=== PATIENT | female | born 1955 | race Caucasian/White ===

== ENCOUNTER 2018-06-05 09:46 | Inpatient (IN) ==
[2018-06-05] MEDS ORDERED: Labetalol HCl Inj 100 MG/20 ML Vial IV.PUSH ONE (10:58)
--- NOTE | 2018-06-05 11:00 | ED ---
HPI General Chief complaint: Nausea/Vomiting/Diarrhea Stated complaint: flu like symptoms Time Seen by Provider: 06/05/18 10:41 Source: patient Mode of arrival: EMS Limitations: no limitations History of Present Illness HPI narrative: This 62-year-old female says she went to work morning. When she was at work she started feeling badly. She started sweating and then she had vomiting. He did not have a headache. She says that her right hand and her right foot had pins and needles. She did not have any weakness. She is started vomiting and had dry heaves. She called an ambulance and was given Zofran and says she is feeling a bit better now. Her nausea and vomiting have improved and her sweating has resolved. Tingling now. She is not on any medications she is on no [id number] counter medication she does smoke cigarettes and she drinks alcohol daily. She has had elevated pressure readings in the past but does not see any physician on a regular basis Related Data Home Medications Medication Instructions Recorded Confirmed No Known Home Medications 06/05/18 06/05/18 Allergies Allergy/AdvReac Type Severity Reaction Status Date / Time morphine Allergy Unknown unknown Verified 06/05/18 09:55 Review of Systems ROS: all other systems reviewed are negative Gastrointestinal Reports nausea and Reports vomiting PMFSH Medical History Medical History HTN (hypertension) (Acute) Surgical History Surgical History History of appendectomy (Acute) History of tubal ligation (Acute) Social History Social History Substance History: No History of Abuse Smoking Status: Current every day smoker Tobacco Type: Cigarettes How Often Do You Have a Drink Containing Alcohol: 4 or more times a week Immunization History Tetanus Immunization: >5 Years Exam Narrative Exam Narrative: GENERAL: Well-developed female. Blood pressure is initially 260 /210 SKIN: Focused skin assessment warm/dry. HEAD: Atraumatic. Normocephalic. EYES: Pupils equal and round. No scleral icterus. No injection or drainage. ENT: No nasal bleeding or discharge. Mucous membranes pink and moist. NECK: Trachea midline. No JVD. CARDIOVASCULAR: Regular rate and rhythm. No murmur appreciated. RESPIRATORY: No accessory muscle use. Clear to auscultation. Breath sounds equal bilaterally. GASTROINTESTINAL: Abdomen soft, non-tender, nondistended. Hepatic and splenic margins not palpable. MUSCULOSKELETAL: No obvious deformities. No clubbing. No cyanosis. No edema. NEUROLOGICAL: Awake and alert. No obvious cranial nerve deficits. Motor grossly within normal limits. Normal speech. PSYCHIATRIC: Appropriate mood and affect; insight and judgment normal.. Course Initial Documented Vital Signs Temperature 97.5 F L 06/05/18 09:50 Pulse Rate 74 06/05/18 09:50 Respiratory Rate 16 06/05/18 09:50 Blood Pressure 256/109 H 06/05/18 09:50 Pulse Oximetry 94 L 06/05/18 09:50 Last Documented Vital Signs Temperature 97.5 F L 06/05/18 09:50 Pulse Rate 74 06/05/18 09:50 Respiratory Rate 16 06/05/18 10:55 Blood Pressure 245/105 H 06/05/18 10:55 Pulse Oximetry 96 06/05/18 10:55 Medical Decision Making MDM Narrative Medical decision making narrative: CT scan of the brain shows hemorrhage in the left brainstem which measures 17 x 10 mm. Patient has been started on Cardene for blood pressure control Medical Screen Exam Complete: Yes Emergency Medical Condition: Yes Lab Data Result diagrams: 06/05/18 11:00 06/05/18 11:00 Lab Results 06/05/18 06/05/18 06/05/18 Range/Units 11:00 11:00 11:00 CBC w Diff Slide review pending WBC 10.3 (4.0-11.0) th/mm3 RBC 4.95 (4.00-5.30) mil/mm3 Hgb 16.5 H (11.6-15.3) gm/dL Hct 45.5 (35.0-46.0) % MCV 92.1 (80.0-100.0) fL MCH 33.3 (27.0-34.0) pg MCHC 36.1 H (32.0-36.0) % RDW 14.7 (11.6-17.2) % Plt Count 314 (150-450) th/mm3 MPV 7.8 (7.0-11.0) fL Neut % (Auto) 76.7 H (16.0-70.0) % Lymph % (Auto) 10.3 (9.0-44.0) % [place] % (Auto) 8.2 H (0.0-8.0) % Eos % (Auto) 0.6 (0.0-4.0) % Baso % (Auto) 4.2 H (0.0-2.0) % Neut # (Auto) 7.9 H (1.8-7.7) th/mm3 Lymph # (Auto) 1.1 (1.0-4.8) th/mm3 [place] # (Auto) 0.8 (0.0-0.9) th/mm3 Eos # (Auto) 0.1 (0.0-0.4) th/mm3 Baso # (Auto) 0.4 H (0.0-0.2) th/mm3 Differential Comment . PT 10.7 (9.8-11.6) sec INR 1.1 Ratio APTT 22.6 L (24.3-30.1) sec Sodium 140 (136-145) meq/L Potassium 3.3 L (3.5-5.1) meq/L Chloride 104 (98-107) meq/L Carbon Dioxide 23.9 (21.0-32.0) meq/L Anion Gap 12 (5-15) meq/L BUN 9 (7-18) mg/dL Creatinine 0.78 (0.50-1.00) mg/dL Estimated GFR 74 L (>89) mL/min POC Glucose (68-110) mg/dl Random Glucose 103 (74-106) mg/dL Calcium 8.5 (8.5-10.1) mg/dL Total Bilirubin 1.0 (0.2-1.0) mg/dL AST 22 (15-37) U/L ALT 17 (10-53) U/L Alkaline Phosphatase 65 (45-117) U/L Troponin I Less than 0.02 L (0.02-0.05) ng/mL Total Protein 8.0 (6.4-8.2) g/dL Albumin 4.2 (3.4-5.0) g/dL 06/05/18 Range/Units 11:08 CBC w Diff WBC (4.0-11.0) th/mm3 RBC (4.00-5.30) mil/mm3 Hgb (11.6-15.3) gm/dL Hct (35.0-46.0) % MCV (80.0-100.0) fL MCH (27.0-34.0) pg MCHC (32.0-36.0) % RDW (11.6-17.2) % Plt Count (150-450) th/mm3 MPV (7.0-11.0) fL Neut % (Auto) (16.0-70.0) % Lymph % (Auto) (9.0-44.0) % [place] % (Auto) (0.0-8.0) % Eos % (Auto) (0.0-4.0) % Baso % (Auto) (0.0-2.0) % Neut # (Auto) (1.8-7.7) th/mm3 Lymph # (Auto) (1.0-4.8) th/mm3 [place] # (Auto) (0.0-0.9) th/mm3 Eos # (Auto) (0.0-0.4) th/mm3 Baso # (Auto) (0.0-0.2) th/mm3 Differential Comment PT (9.8-11.6) sec INR Ratio APTT (24.3-30.1) sec Sodium (136-145) meq/L Potassium (3.5-5.1) meq/L Chloride (98-107) meq/L Carbon Dioxide (21.0-32.0) meq/L Anion Gap (5-15) meq/L BUN (7-18) mg/dL Creatinine (0.50-1.00) mg/dL Estimated GFR (>89) mL/min POC Glucose 118 H (68-110) mg/dl Random Glucose (74-106) mg/dL Calcium (8.5-10.1) mg/dL Total Bilirubin (0.2-1.0) mg/dL AST (15-37) U/L ALT (10-53) U/L Alkaline Phosphatase (45-117) U/L Troponin I (0.02-0.05) ng/mL Total Protein (6.4-8.2) g/dL Albumin (3.4-5.0) g/dL Imaging Data Radiologist's impression: Chest X-Ray 06/05/18 10:48 CONCLUSION: Mild cardiomegaly. Head CT 06/05/18 10:51 CONCLUSION: 1. Hemorrhage in the left brainstem. No significant mass effect or midline shift. Fourth ventricle remains patent. 2. Nonspecific white matter changes. . Discharge Plan Discharge Disposition Patient Disposition: Transfer To [facility] Discharge Condition Condition: Critical Discharge Details Diagnosis: Hypertensive emergency Physicians Team ED Provider: Rony Stevenson Primary Care Provider: Primary Care Lidia Rose Rxs /Orders / Referrals /Forms Prescriptions: No Action No Known Home Medications RF: 0 Discharge Interventions Interventions: Vital Signs Last Done: 06/05/18 10:55 Status ED Status: With Doctor
[2018-06-05 11:22] LABS: Baso # (Auto) 0.4 th/mm3 (0.0-0.2); Baso % (Auto) 4.2 % (0.0-2.0); Eos # (Auto) 0.1 th/mm3 (0.0-0.4); Eos % (Auto) 0.6 % (0.0-4.0); Hematocrit 45.5 % (35.0-46.0); Hemoglobin 16.5 gm/dL (11.6-15.3); Lymph # (Auto) 1.1 th/mm3 (1.0-4.8); Lymph % (Auto) 10.3 % (9.0-44.0); Mean Corpuscular Hemoglobin 33.3 pg (27.0-34.0); Mean Corpuscular Volume 92.1 fL (80.0-100.0); Mean Platelet Volume 7.8 fL (7.0-11.0); Mono # (Auto) 0.8 th/mm3 (0.0-0.9); Mono % (Auto) 8.2 % (0.0-8.0); Neut # (Auto) 7.9 th/mm3 (1.8-7.7); Neut % (Auto) 76.7 % (16.0-70.0); Platelet Count 314 th/mm3 (150-450); Red Blood Count 4.95 mil/mm3 (4.00-5.30); Red Cell Distribution Width 14.7 % (11.6-17.2); White Blood Count 10.3 th/mm3 (4.0-11.0)
--- NOTE | 2018-06-05 11:25 | XR ---
EXAM DATE: 06/05/2018 10:48 AM EDT AGE/SEX: 62 years / Female INDICATIONS: High blood pressure with vomiting CLINICAL DATA: This is the patient's initial encounter. Patient reports that signs and symptoms have been present for 1 day and indicates a pain score of 4/10. MEDICAL/SURGICAL HISTORY: . Pancreatitis. Gastroesophageal reflux disease. Hypertension. . A ppendectomy. Tubal ligation. COMPARISON: [facility], CHEST PA & LAT, 06/25/2012. . FINDINGS: A single AP view of the chest demonstrates the lungs to be symmetrically aerated without evidence of mass, infiltrate or effusion. Heart mildly enlarged. The cardiomediastinal contours are unremarkable. Osseous structures are intact. CONCLUSION: Mild cardiomegaly. Electronically signed by: Qamar Cope MD 06/05/2018 11:23 AM EDT
[2018-06-05 11:32] LABS: Chloride 104 meq/L (98-107); Potassium 3.3 meq/L (3.5-5.1); Sodium 140 meq/L (136-145)
[2018-06-05 11:38] LABS: Albumin 4.2 g/dL (3.4-5.0); Anion Gap 12 meq/L (5-15); Blood Urea Nitrogen 9 mg/dL (7-18); Calcium 8.5 mg/dL (8.5-10.1); Carbon Dioxide 23.9 meq/L (21.0-32.0); Glucose,Random 103 mg/dL (74-106)
[2018-06-05 11:41] LABS: Alanine Aminotransferase 17 U/L (10-53); Aspartate Aminotransferase 22 U/L (15-37); Glomerular Filtration Rate 74 mL/min (>89)
[2018-06-05 11:44] LABS: Alkaline Phosphatase 65 U/L (45-117)
[2018-06-05 11:54] LABS: Activated Partial Thrombo Time 22.6 sec (24.3-30.1); INR 1.1 Ratio; Prothrombin Time 10.7 sec (9.8-11.6)
--- NOTE | 2018-06-05 12:00 | CT ---
EXAM DATE: 06/05/2018 11:07 AM EDT AGE/SEX: 62 years / Female INDICATIONS: Nausea and tingling in right upper and lower extremity. CLINICAL DATA: This is the patient's initial encounter. Patient reports that signs and symptoms have been present for 1 day and indicates a pain score of 0/10. MEDICAL/SURGICAL HISTORY: Hypertension. Appendectomy. Tubal ligation. RADIATION DOSE: 51.68 CTDI (mGy) COMPARISON: No prior exams available for comparison. TECHNIQUE: CT of the head without contrast. Using automated exposure control and adjustment of the mA and/or kV according to patient size, radiation dose was kept as low as reasonably achievable to ob tain optimal diagnostic quality images. DICOM format image data is available electronically for revi ew and comparison. FINDINGS: Cerebrum: The ventricles are normal for age. Scattered areas of low attenuation throughout the white matter. No evidence of midline shift, mass lesion, hemorrhage or acute infarction. No extraaxial fl uid collections are seen. Posterior Fossa: The cerebellum is intact. Hemorrhage in the left brainstem measures 17 x 10 mm. No significant mass effect. The 4th ventricle is midline. The cerebellopontine angle is unremarkable. Extracranial: The visualized portion of the orbits is intact. Skull: The calvaria is intact. No evidence of skull fracture. CONCLUSION: 1. Hemorrhage in the left brainstem. No significant mass effect or midline shift. Fourth ventricle r emains patent. 2. Nonspecific white matter changes. . Electronically signed by: Qamar Cope MD 06/05/2018 11:58 AM EDT
[2018-06-05 12:02] LABS: Mean Corpuscular HGB Conc 36.1 % (32.0-36.0)
[2018-06-05] MEDS ORDERED: Potassium Chlor 10 mEq Premix 10 MEQ/100 ML PIGGYBACK IV.SIG ONE (12:20)
[2018-06-05] MEDS: niCARdipine Inj 25 MG in Sodium Chlor 0.9% Inj 240 ML IV.CONT PRN ×4 (12:51→23:53)
[2018-06-05] MEDS ORDERED: Sodium Phosphate Inj 30 MMOL in Sodium Chlor 0.9% Inj 250 ML IV.SIG PRN (12:56)
[2018-06-05] MEDS ORDERED: Magnesium Sulfate Inj 2 GM in Sodium Chlor 0.9% Inj 96 ML IV.SIG PRN (12:56)
[2018-06-05] MEDS ORDERED: Magnesium Oxide 400 MG Tablet PO PRN (12:56)
[2018-06-05] MEDS ORDERED: Potassium Chloride 25 MEQ Effervescent Tablet PO PRN (12:56)
[2018-06-05] MEDS ORDERED: Potassium Phosphate 500 MG Soluble Tablet PO PRN ×2 (12:56)
[2018-06-05] MEDS ORDERED: Potassium Chlor 40 mEq Premix 40 MEQ/100 ML PIGGYBACK IV.SIG PRN ×2 (12:56)
[2018-06-05] MEDS ORDERED: Magnesium Sulfate Inj 4 GM in Sodium Chlor 0.9% Inj 92 ML IV.SIG PRN (12:56)
[2018-06-05] MEDS ORDERED: Bisacodyl 10 MG Supp RECTAL PRN (12:56)
[2018-06-05] MEDS ORDERED: Potassium Phosphate Inj 30 MMOL in Sodium Chlor 0.9% Inj 250 ML IV.SIG PRN (12:56)
[2018-06-05 13:15] LABS: Bilirubin,Urine Negative (Negative); Clarity,Urine Clear (Clear); Color,Urine Yellow (Yellw/Straw); Glucose,Urine (UA) Negative (Negative); Leukocyte Esterase,Urine Trace (Negative); Nitrite,Urine Negative (Negative); PH,Urine 7.5 (5.0-8.5); Urobilinogen,Urine 0.2 mg/dL (Less than 2)
[2018-06-05 13:21] LABS: Bacteria,Urine Rare /hpf; Squamous Epithelial Cell,Urine 0-5 /hpf (0-5); WBC,Urine 0-5 /hpf (0-5)
[2018-06-05] MEDS: Sod Chloride 0.9% Inj 1,000 ML IV.CONT SCH (14:00)
--- NOTE | 2018-06-05 14:47 | P.HPCC ---
History of Present Illness Service: [facility] Primary Care Physician: No Primary Care Physician History of Present Illness: 62yF who presented to [facility] for sweating, "dry heaving", and "not feeling well". She reported "pins and needles" sensation to her right hand and foot, onset approximately 8:45 AM (30-45 mins prior to arrival to ED). Denies aphasia, slurred speech, drooling or sensation of facial droop, extremity weakness, difficulty ambulating, headache, or confusion. She was found to be profoundly hypertensive (SBP 260s) with hypertensive brainstem hemorrhage, was started on a nicardipine drip, and was subsequently transferred to the [facility] for neurocritical care and neurosurgery evaluation. She denies use of anticoagulants or antiplatelets, denies recent trauma, has a history of elevated BP previously but is not on any antihypertensives currently due to insurance issues; she does not remember which medication(s) she took in the past. She currently complains of nausea. Family history significant for multiple family members with HTN, father with nephrectomy (unclear etiology), and "tumor on his bowel". No known family history of CVA. - Diagnosis (1) Brainstem hemorrhage (2) Hypertensive emergency Inpatient Certification: I certify that the inpatient services were ordered in accordance with Medicare regulations governing the order. This includes certification that hospital inpatient services are reasonable and necessary and in the case of services not specified as inpatient-only under 42 CFR 419.22(n), that they are appropriately provided as inpatient services in accordance to with the 2-midnight benchmark under 43 CFR 412.3(e) Estimated Total Length of Stay (Days): 7 Plans for Post Hospital Care: Not yet determined Review of Systems All other systems reviewed negative except as stated in HPI Constitutional: Reports excessive sweating, Denies headache(s) Eyes: Denies blurry vision Cardiovascular: Denies chest pain Respiratory: Denies shortness of breath Gastrointestinal: Reports nausea, Reports vomiting Musculoskeletal: Denies abnormal walking Neurologic: Reports tingling, Denies abnormal speech, Denies headache(s), Denies unsteadiness, Denies weakness PMFSH - History History Provided By: Patient - Medical History Medical History: Medical History (Last Reviewed 06/05/18 @ 14:43 by Allie Albright DO) HTN (hypertension) - Surgical History Surgical History: Surgical History (Last Reviewed 06/05/18 @ 14:43 by Allie Albright DO) History of appendectomy History of tubal ligation - Social History I have reviewed the patient's Social History: Yes - Tobacco History Tobacco Use In Past 30 Days: Yes Smoking Status: Current every day smoker Tobacco Type: Cigarettes - Alcohol History How Often Do You Have a Drink Containing Alcohol: 4 or more times a week - Substance Use History Substance History: No History of Abuse - Immunization History Tetanus Immunization: >5 Years Medications and Allergies Active Medications: Active Medications Al Hydroxide/Mg Hydroxide (Milk Of Magnesia Liq) 30 ml PO Q12H PRN PRN Reason: Mild Constipation Bisacodyl (Dulcolax Supp) 10 mg RECTAL DAILY PRN PRN Reason: SEVERE CONSITIPATION Chlorhexidine Gluconate (Chlorhexidine 2% Cloth) 3 pack TOPICAL DAILY@0400 MAGDIEL Stop: 06/11/18 03:59 Chlorhexidine Gluconate (Chlorhexidine 2% Cloth) 3 pack TOPICAL DAILY@0400 PRN PRN Reason: Extra cloth needed Stop: 06/11/18 03:59 Famotidine (Pepcid) 20 mg PO BID [facility] Famotidine (Pepcid Pf Inj) 20 mg IV.PUSH Q12HR [facility] Nicardipine HCl 25 mg/ Sodium (Chloride) 250 mls @ 50 mls/hr IV.CONT TITRATE PRN; Protocol PRN Reason: Per Protocol Last Admin: 06/05/18 12:51 Dose: 5 mg/hr, 50 mls/hr Magnesium Sulfate 4 gm/ Sodium (Chloride) 100 mls @ 50 mls/hr IV.SIG UNSCH PRN PRN Reason: For Magnesium 0.9 - 1.1 mg/dL Magnesium Sulfate 2 gm/ Sodium (Chloride) 100 mls @ 50 mls/hr IV.SIG UNSCH PRN PRN Reason: For Magnesium 1.2 - 1.6 mg/dL Sodium Chloride (Ns Inj) 1,000 mls @ 84 mls/hr IV.CONT .[id number] [facility] Last Admin: 06/05/18 14:00 Dose: 84 mls/hr Potassium Chloride (Kcl 40 Meq Premix Inj) 40 meq in 100 mls @ 25 mls/hr IV.SIG Q2H PRN PRN Reason: For Potassium 2.8 - 3.2 mEq/L Potassium Chloride (Kcl 20 Meq Premix Inj) 20 meq in 100 mls @ 50 mls/hr IV.SIG Q2H PRN PRN Reason: For Potassium 3.3 - 3.5 mEq/L Potassium Chloride (Kcl 40 Meq Premix Inj) 40 meq in 100 mls @ 25 mls/hr IV.SIG UNSCH PRN PRN Reason: For Potassium 3.3 - 3.5 mEq/L Potassium Chloride (Kcl 20 Meq Premix Inj) 20 meq in 100 mls @ 50 mls/hr IV.SIG Q2H PRN PRN Reason: For Potassium 2.8 - 3.2 mEq/L Potassium Phosphate 30 mmol/ (Sodium Chloride) 260 mls @ 42 mls/hr IV.SIG UNSCH PRN PRN Reason: SEE LABEL COMMENTS Sodium Phosphate 30 mmol/ (Sodium Chloride) 260 mls @ 42 mls/hr IV.SIG UNSCH PRN PRN Reason: For Phosphorus < 2.5 mg/dL Lactulose (Lactulose Liq) 30 ml PO DAILY PRN PRN Reason: SEVERE CONSITIPATION Magnesium Oxide (Mag-Ox) 800 mg PO UNSCH PRN PRN Reason: For Magnesium 1.2 - 1.6 mg/dL Potassium Bicarb/Potassium Chloride (K-Lyte Cl Eff) 50 meq PO UNSCH PRN PRN Reason: For Potassium 3.3 - 3.5 mEq/L Potassium Phosphate (K-Phos Original) 2,000 mg PO Q4H PRN PRN Reason: Phosphorus Less Than 2.5 mg/dL Potassium Phosphate (K-Phos Original) 2,000 mg PO UNSCH PRN PRN Reason: SEE LABEL COMMENTS Senna/Docusate Sodium (Priscilla-Colace) 1 tab PO BID MAGDIEL Sennosides (Senokot) 17.2 mg PO Q12H PRN PRN Reason: Moderate Constipation Sodium Chloride (Ns Flush) 2 ml IV.FLUSH PRN PRN PRN Reason: FLUSH AFTER USING IV ACCESS Sodium Chloride (Ns Flush) 2 ml IV.FLUSH BID MAGDIEL Sodium Chloride (Ns Flush) 2 ml IV.FLUSH PRN PRN PRN Reason: FLUSH AFTER USING IV ACCESS Allergies Allergy/AdvReac Type Severity Reaction Status Date / Time morphine Allergy Unknown unknown Verified 06/05/18 09:55 Home Medications Medication Instructions Recorded Confirmed Type No Known Home Medications 06/05/18 06/05/18 History Results - Labs CBC & Chem 7: 06/05/18 11:00 06/05/18 11:00 Labs: Short CBC 06/05/18 Range/Units 11:00 WBC 10.3 (4.0-11.0) th/mm3 Hgb 16.5 H (11.6-15.3) gm/dL Hct 45.5 (35.0-46.0) % Plt Count 314 (150-450) th/mm3 BMP 06/05/18 11:00 Sodium 140 Potassium 3.3 L Chloride 104 Carbon Dioxide 23.9 BUN 9 Creatinine 0.78 Calcium 8.5 Cardiac Enzymes 06/05/18 Range/Units 11:00 Troponin I Less than 0.02 L (0.02-0.05) ng/mL Liver Function 06/05/18 Range/Units 11:00 Total Bilirubin 1.0 (0.2-1.0) mg/dL AST 22 (15-37) U/L ALT 17 (10-53) U/L Alkaline Phosphatase 65 (45-117) U/L Albumin 4.2 (3.4-5.0) g/dL Urine 06/05/18 Range/Units 12:55 Urine Color Yellow (Yellw/Straw) Urine Clarity Clear (Clear) Urine pH 7.5 (5.0-8.5) Ur Specific [place] 1.010 (1.002-1.035) Urine Protein Negative (Neg-Trace) mg/dL Urine Glucose (UA) Negative (Negative) mg/dL - Imaging Impressions Chest X-Ray 06/05/18 10:48 CONCLUSION: Mild cardiomegaly. Head CT 06/05/18 10:51 CONCLUSION: 1. Hemorrhage in the left brainstem. No significant mass effect or midline shift. Fourth ventricle remains patent. 2. Nonspecific white matter changes. . Exam Vital signs: Vital Signs 06/05/18 09:50 06/05/18 10:55 06/05/18 11:55 Temperature 97.5 F L Pulse Rate 74 74 Respiratory Rate 16 16 16 Blood Pressure 256/109 H 245/105 H 215/102 H Pulse Oximetry 94 L 96 98 06/05/18 12:55 06/05/18 12:56 06/05/18 13:10 Temperature Pulse Rate 83 80 Respiratory Rate 16 16 Blood Pressure 232/107 H 192/86 H Pulse Oximetry 98 98 97 06/05/18 13:25 06/05/18 13:50 06/05/18 14:10 Temperature Pulse Rate 83 84 89 Respiratory Rate 16 16 16 Blood Pressure 178/84 H 175/85 H 170/76 H Pulse Oximetry 98 97 97 06/05/18 14:25 Temperature Pulse Rate 86 Respiratory Rate 16 Blood Pressure 170/75 H Pulse Oximetry 96 Intake & Output 06/04/18 06/05/18 06/05/18 18:59 06:59 18:59 Intake Total 100 / 100 Balance 100 / 100 Weight 58.967 kg Intake: IV 100 / 100 KCl 10 mEq Premix Inj 10 meq In 100 / 100 100 ml @ 100 mls/hr IV.SIG ONCE ONE Rx#:[id number] Narrative: GEN: Well-appearing, sitting up in bed in no acute distress HEENT: NCAT, pupils 3 mm and reactive bilaterally, no facial droop NECK: Trachea midline CARDIO: Regular rate and rhythm PULM: Clear to auscultation bilaterally ABD/GI: Soft and non-tender in all quadrants EXT/MSK: No lower extremity edema, warm and well-perfused SKIN: No rashes or lesions NEURO: GCS 15, A&Ox3, NIHSS 0 * Motor strength 5/5 and sensation intact to all extremities, no pronator drift * scarifier operator II-XII intact, speech clear and fluent, no slurred speech or aphasia, no facial droop * Answers all questions appropriately and follows all commands * No focal neuro deficits PSYCH: Appropriate affect Caprini VTE Risk Assessment Caprini VTE Risk Assessment: Moderate/High Risk (score >= 2) VTE Pharmacological Exception Reason: Hemorrhage Caprini Risk Assessment Model: Point Value = 1 Point Value = 2 Point Value = 3 Point Value = 5 Age 41-60 Minor surgery BMI > 25 kg/m2 Swollen legs Varicose veins or History of unexplained or recurrent spontaneous Oral contraceptives or hormone replacement Sepsis (< 1 month) Serious lung disease, including pneumonia (< 1 month) Abnormal pulmonary function Acute myocardial infarction Congestive heart failure (< 1 month) History of inflammatory bowel disease Medical patient at bed rest Age 61-74 Arthroscopic surgery Major open surgery (> 45 min) Laparoscopic surgery (> 45 min) Malignancy Confined to bed (> 72 hours) Immobilizing plaster cast Central venous access Age >= 75 History of VTE Family history of VTE Factor V Leiden Prothrombin [id number] Lupus anticoagulant Anticardiolipin antibodies Elevated serum homocysteine Heparin-induced thrombocytopenia Other congenital or acquired thrombophilia Stroke (< 1 month) Elective arthroplasty Hip, pelvis, or leg fracture Acute spinal cord injury (< 1 month) Prophylaxis Regimen: Total Risk Factor Score Risk Level Prophylaxis Regimen 0-1 Low Early ambulation 2 Moderate Order ONE of the following: *Sequential Compression Device (SCD) *Heparin 5000 units SQ BID 3-4 Higher Order ONE of the following medications: *Heparin 5000 units SQ TID *Enoxaparin/Lovenox 40 mg SQ daily (WT < 150 kg, CrCl > 30 mL/min) *Enoxaparin/Lovenox 30 mg SQ daily (WT < 150 kg, CrCl > 10-29 mL/min) *Enoxaparin/Lovenox 30 mg SQ BID (WT < 150 kg, CrCl > 30 mL/min) AND/OR *Sequential Compression Device (SCD) 5 or more Highest Order ONE of the following medications: *Heparin 5000 units SQ TID (Preferred with Epidurals) *Enoxaparin/Lovenox 40 mg SQ daily (WT < 150 kg, CrCl > 30 mL/min) *Enoxaparin/Lovenox 30 mg SQ daily (WT < 150 kg, CrCl > 10-29 mL/min) *Enoxaparin/Lovenox 30 mg SQ BID (WT < 150 kg, CrCl > 30 mL/min) AND *Sequential Compression Device (SCD) Assessment and Plan - Problem List (1) Brainstem hemorrhage Code(s): I61.3 - Nontraumatic intracerebral hemorrhage in brain stem Status: Acute (2) Hypertensive emergency Code(s): I16.1 - Hypertensive emergency Status: Acute - Assessment and Plan Plan: Assessment: 62yF presenting with hypertensive emergency and hypertensive brainstem hemorrhage on the left NEURO: * Neurosurg consult * Cardene gtt to keep SBP < 160 mmHg * Repeat CTH in AM * Avoid all anticoagulants/ antiplatelets * q1h neuro checks * Monitor for signs of EtOH withdrawal; would like to avoid benzos in the acute setting unless absolutely necessary CARDIO: * BP control as noted above RESP: * Counseled patient on importance of smoking cessation * Nicotine patch * Incentive spirometer F/E/N: * Stress ulcer prophylaxis * NPO, maintenance IVF * Dysphagia screening * Serum sodium 140, no indication for hyperosmolar therapy * ICU lyte repletion protocol HEME: * SCDs only ID: * No active issues ENDO: * q6h FSBG, sliding scale if needed (no previous history of DM) * Check A1c PROPHY: * Stress ulcer prophylaxis * Bowel regimen * SCDs only OVERALL: This patient is critically ill and requires ICU level of care for hypertensive emergency and hypertensive brain stem hemorrhage. Counseling/ Coordination of Care: Total critical care time spent is 44 minutes. This includes examining the patient, gathering history from someone other than the patient (i.e. chart review), discussing the patient's care with other providers, managing the patient's blood pressure, ordering and interpreting radiologic studies, ordering and interpreting laboratory values, re-evaluation at frequent intervals , and documentation. Amount of time is separate from teaching, counseling the patient and/or family, and exclusive of procedures. Code Status: Full H&P: Quality - Stroke Contraindication Not Initiating IV-Tpa: Contraindicated Onset of Symptoms Date: 06/05/18 Onset of Symptoms Time: 08:45 (Approximate as per patient) Symptom Onset Unknown: Yes Contraindication Antithromb by Day Two: Contraindicated Rehab Services Assessed: Physical medicine initial examination and planning for rehabilitation - VTE Contraindication No VTE Prophylaxis: Contraindicated (intracranial hemorrhage) Documentation of Mechanical Device: Intermittent pneumatic compression stockings Deep Vein Thrombosis/Pulmonary Embolism Present on Admission: No (1) Brainstem hemorrhage Qualifiers: Intracerebral hemorrhage etiology: nontraumatic
--- NOTE | 2018-06-05 16:51 | ECG ---
Date Performed: 06/05/2018 Time Performed: 11:21:12 PTAGE: 62 years EKG: Sinus rhythm WITH OCCASIONAL SUPRAVENTRICULAR PREMATURE COMPLEXES NONSPECIFIC T-WAVE ABNORMALITY PROLONGED QT INT ERVAL ABNORMAL ECG Since PREVIOUS TRACING , no significant change noted PREVIOUS TRACIN07/09/2014 02.16 DOCTOR: Aimee Gomez Interpretating Date/Time 06/05/2018 16:49:35
--- NOTE | 2018-06-05 18:02 | P.CONNS ---
History of Present Illness Service: Neurosurgery Consult date: 06/05/18 Requesting Physician: Allie Albright (Route Service Representative) Reason for Consult: Brainstem hemorrhage Primary Care Provider: No Primary Care Physician Family Provider: No Primary Care Physician History of Present Illness: 62-year-old right-handed female presented emergency room with complaints of acute onset of nausea along with numbness in the right arm and leg and diaphoresis. She was very hypertensive on presentation with systolic blood pressure in the 240s range. CT scan of the head obtained reveals a left midbrain/pontine brainstem hemorrhage measuring 17 mm x 9 mm without any associated hydrocephalus. She was started on Cardene drip to regulate her intractable hypertension and transferred to [facility] main business systems analyst for further management. She relates that her symptoms have improved since this morning. She has a history of hypertension but due to lack of medical insurance is not been compliant with the any medical follow-up or medications. 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 Review of Systems Constitutional: Reports excessive sweating, Denies anorexia, Denies body ache(s) , Denies chills, Denies daytime sleepiness, Denies fatigue, Denies fever(s), Denies headache(s), Denies increased appetite, Denies lack of energy, Denies malaise, Denies night sweats, Denies weakness, Denies weight gain, Denies weight loss, Denies other Eyes: Denies blind spots, Denies blurry vision, Denies bulging eyes, Denies change in vision, Denies double vision, Denies discharge, Denies dry eyes, Denies floaters, Denies irritation, Denies itchy eyes, Denies loss of vision, Denies pain, Denies requires corrective lenses, Denies sensitivity to light, Denies other Ears, Nose, Mouth, and Throat: Denies abnormal hearing, Denies bleeding gums, Denies bad breath, Denies change in voice, Denies dental pain, Denies difficulty swallowing, Denies dizziness, Denies dry mouth, Denies ear discharge , Denies ear pain, Denies facial pain, Denies headache(s), Denies hearing loss, Denies hoarseness, Denies lip swelling, Denies nosebleed, Denies mouth lesions, Denies mouth pain, Denies nasal congestion, Denies nasal discharge, Denies nasal obstruction, Denies nasal trauma, Denies neck lump, Denies neck pain, Denies nose pain, Denies pain with swallowing, Denies poor balance, Denies post nasal drip, Denies ringing in the ears, Denies sinus pain, Denies sinus pressure , Denies sore throat, Denies throat swelling, Denies tongue swelling, Denies other Cardiovascular: Denies chest pain, Denies chest pain at rest, Denies chest pain with activity, Denies excessive sweating, Denies fainting, Denies fast heart rate, Denies foot swelling, Denies generalized swelling, Denies irregular heart rhythm, Denies leg pain with activity, Denies leg sores, Denies leg swelling, Denies lightheadedness, Denies radiating jaw, neck or arm pain, Denies rapid, pounding, or irregular heartbeat, Denies shortness of breath, Denies shortness of breath with activity, Denies shortness of breath when lying down, Denies shortness of breath causing sudden awakening, Denies slow heart rate, Denies other Gastrointestinal: Reports nausea, Denies abdominal pain, Denies belching, Denies black, tarry stools, Denies bloating, Denies bright, red blood in stools , Denies change in bowel habits, Denies constant urge to pass stool, Denies change in stools, Denies coffee ground vomit, Denies constipation, Denies cramping, Denies difficulty swallowing, Denies excessive passing of gas, Denies feeling full early, Denies heartburn, Denies incontinent of stools, Denies loose stools, Denies pain with swallowing, Denies vomiting, Denies vomiting blood, Denies other Genitourinary: Denies abnormal periods, Denies abnormal vaginal bleeding, Denies absent period, Denies bleeding between periods, Denies blood in urine, Denies difficulty starting urination, Denies difficulty urinating, Denies dribbling after urination, Denies frequent nighttime urination, Denies genital itching, Denies genital lesions, Denies heavy periods, Denies hot flashes, Denies light periods, Denies nipple discharge, Denies painful intercourse, Denies painful periods, Denies painful urination, Denies pelvic pain, Denies prolapse symptoms, Denies sexual problems, Denies side pain, Denies urinary incontinence, Denies urinary urgency, Denies vaginal discharge, Denies vaginal dryness, Denies vaginal odor, Denies vaginal itching, Denies other Musculoskeletal: Denies abnormal walking, Denies back pain, Denies body aches, Denies decreased muscle mass, Denies deformity, Denies joint pain, Denies joint swelling, Denies limited joint movement, Denies loss of height, Denies muscle cramps, Denies muscle weakness, Denies neck pain, Denies numbness, Denies radiating pain into limb, Denies stiffness, Denies tingling, Denies other Skin/Breast: Denies acne, Denies bleeding lesions, Denies boil, Denies breast swelling, Denies breast skin changes, Denies breast pain, Denies breast lump, Denies change in breast shape, Denies change in hair, Denies change in skin color, Denies changing lesions, Denies dry skin, Denies excessive hair growth, Denies hair loss, Denies itching, Denies lesions, Denies nail changes, Denies new lesions, Denies nipple discharge, Denies non-healing lesions, Denies redness , Denies sensitivity to light, Denies rash, Denies skin pain, Denies skin ulcer , Denies sores, Denies stretch elias, Denies unusual bruising, Denies wounds, Denies yellowing of the skin, Denies other Neurologic: Reports tingling/numbness/burning sensations Psychiatric: Denies abnormal sleep pattern, Denies anxiety, Denies behavioral changes, Denies change in appetite, Denies change in sex drive, Denies confusion , Denies depression, Denies difficulty concentrating, Denies hearing things others do not hear, Denies hopelessness, Denies irritability, Denies lack of enjoyment, Denies memory loss, Denies mood swings, Denies panic attacks, Denies paranoia, Denies seeing things others do not see, Denies sensing things others do not sense, Denies tactile hallucinations, Denies thoughts of hurting/killing others, Denies thoughts of hurting/killing yourself, Denies other Endocrine: Denies cold intolerance, Denies excessive sweating, Denies flushing, Denies heat intolerance, Denies increased hunger, Denies increased thirst, Denies increased urination, Denies rapid, pounding, or irregular heartbeat, Denies other Hematologic/Lymphatic: Denies easy bleeding, Denies easy bruising, Denies enlarged lymph nodes, Denies other Allergic/Immunologic: Denies GI upset with certain foods, Denies hives, Denies itchy eyes, Denies lip swelling, Denies seasonal runny nose, Denies throat swelling, Denies tongue swelling, Denies wheezing, Denies other PMFSH - History History Provided By: Patient - Medical History Medical History: Medical History (Last Updated 06/05/18 @ 17:57 by Lauri Pang MD) HTN (hypertension) Pancreatitis, chronic - Surgical History Surgical History: Surgical History (Last Reviewed 06/05/18 @ 17:58 by Lauri Pang MD) History of appendectomy History of tubal ligation - Tobacco History Second Hand Smoke Exposure: No Tobacco Use In Past 30 Days: Yes Smoking Status: Current every day smoker Tobacco Type: Cigarettes - Alcohol History How Often Do You Have a Drink Containing Alcohol: 4 or more times a week - Substance Use History Substance History: No History of Abuse - Immunization History Tetanus Immunization: >5 Years Hx Influenza Vaccine This Season: No Medications and Allergies Active Medications: Active Medications Al Hydroxide/Mg Hydroxide (Milk Of Master William) 30 ml PO Q12H PRN PRN Reason: Mild Constipation Bisacodyl (Dulcolax Supp) 10 mg RECTAL DAILY PRN PRN Reason: SEVERE CONSITIPATION Chlorhexidine Gluconate (Chlorhexidine 2% Cloth) 3 pack TOPICAL DAILY@0400 MAGDIEL Stop: 06/11/18 03:59 Chlorhexidine Gluconate (Chlorhexidine 2% Cloth) 3 pack TOPICAL DAILY@0400 PRN PRN Reason: Extra cloth needed Stop: 06/11/18 03:59 Famotidine (Pepcid) 20 mg PO BID MAGDIEL Famotidine (Pepcid Pf Inj) 20 mg IV.PUSH Q12HR MAGDIEL Nicardipine HCl 25 mg/ Sodium (Chloride) 250 mls @ 50 mls/hr IV.CONT TITRATE PRN; Protocol PRN Reason: Per Protocol Last Admin: 06/05/18 17:08 Dose: 7.5 mg/hr, 75 mls/hr Magnesium Sulfate 4 gm/ Sodium (Chloride) 100 mls @ 50 mls/hr IV.SIG UNSCH PRN PRN Reason: For Magnesium 0.9 - 1.1 mg/dL Magnesium Sulfate 2 gm/ Sodium (Chloride) 100 mls @ 50 mls/hr IV.SIG UNSCH PRN PRN Reason: For Magnesium 1.2 - 1.6 mg/dL Sodium Chloride (Ns Inj) 1,000 mls @ 84 mls/hr IV.CONT .[id number] [facility] Last Admin: 06/05/18 14:00 Dose: 84 mls/hr Potassium Chloride (Kcl 40 Meq Premix Inj) 40 meq in 100 mls @ 25 mls/hr IV.SIG Q2H PRN PRN Reason: For Potassium 2.8 - 3.2 mEq/L Potassium Chloride (Kcl 20 Meq Premix Inj) 20 meq in 100 mls @ 50 mls/hr IV.SIG Q2H PRN PRN Reason: For Potassium 3.3 - 3.5 mEq/L Potassium Chloride (Kcl 40 Meq Premix Inj) 40 meq in 100 mls @ 25 mls/hr IV.SIG UNSCH PRN PRN Reason: For Potassium 3.3 - 3.5 mEq/L Potassium Chloride (Kcl 20 Meq Premix Inj) 20 meq in 100 mls @ 50 mls/hr IV.SIG Q2H PRN PRN Reason: For Potassium 2.8 - 3.2 mEq/L Potassium Phosphate 30 mmol/ (Sodium Chloride) 260 mls @ 42 mls/hr IV.SIG UNSCH PRN PRN Reason: SEE LABEL COMMENTS Sodium Phosphate 30 mmol/ (Sodium Chloride) 260 mls @ 42 mls/hr IV.SIG UNSCH PRN PRN Reason: For Phosphorus < 2.5 mg/dL Lactulose (Lactulose Liq) 30 ml PO DAILY PRN PRN Reason: SEVERE CONSITIPATION Magnesium Oxide (Mag-Ox) 800 mg PO UNSCH PRN PRN Reason: For Magnesium 1.2 - 1.6 mg/dL Metoclopramide HCl (Reglan Inj) 10 mg IV.PUSH Q8H PRN; Protocol PRN Reason: NAUSEA OR VOMITING Nicotine (Habitrol 14 Mg Patch.24 Hr) 1 patch T-DERMAL DAILY [facility] Last Admin: 06/05/18 16:44 Dose: 1 patch Patch Removal (Remove Old Patch) 1 each T-DERMAL DAILY [facility] Potassium Bicarb/Potassium Chloride (K-Lyte Cl Eff) 50 meq PO UNSCH PRN PRN Reason: For Potassium 3.3 - 3.5 mEq/L Potassium Phosphate (K-Phos Original) 2,000 mg PO Q4H PRN PRN Reason: Phosphorus Less Than 2.5 mg/dL Potassium Phosphate (K-Phos Original) 2,000 mg PO UNSCH PRN PRN Reason: SEE LABEL COMMENTS Senna/Docusate Sodium (Priscilla-Colace) 1 tab PO BID MAGDIEL Sennosides (Senokot) 17.2 mg PO Q12H PRN PRN Reason: Moderate Constipation Sodium Chloride (Ns Flush) 2 ml IV.FLUSH PRN PRN PRN Reason: FLUSH AFTER USING IV ACCESS Sodium Chloride (Ns Flush) 2 ml IV.FLUSH BID MAGDIEL Sodium Chloride (Ns Flush) 2 ml IV.FLUSH PRN PRN PRN Reason: FLUSH AFTER USING IV ACCESS Allergies Allergy/AdvReac Type Severity Reaction Status Date / Time No Known Allergies Allergy Unverified 06/05/18 16:24 Home Medications Medication Instructions Recorded Confirmed Type ranitidine HCl 150 mg PO DAILY 06/05/18 06/05/18 History Exam Vital signs: Vital Signs 06/05/18 09:50 06/05/18 10:55 06/05/18 11:55 Temperature 97.5 F L Pulse Rate 74 74 Respiratory Rate 16 16 16 Blood Pressure 256/109 H 245/105 H 215/102 H Pulse Oximetry 94 L 96 98 06/05/18 12:55 06/05/18 12:56 06/05/18 13:10 Temperature Pulse Rate 83 80 Respiratory Rate 16 16 Blood Pressure 232/107 H 192/86 H Pulse Oximetry 98 98 97 06/05/18 13:25 06/05/18 13:50 06/05/18 14:10 Temperature Pulse Rate 83 84 89 Respiratory Rate 16 16 16 Blood Pressure 178/84 H 175/85 H 170/76 H Pulse Oximetry 98 97 97 06/05/18 14:25 06/05/18 16:00 06/05/18 16:24 Temperature 98.4 F Pulse Rate 86 90 90 Respiratory Rate 16 19 41 H Blood Pressure 170/75 H 137/91 H 165/62 H Pulse Oximetry 96 97 97 06/05/18 16:39 06/05/18 16:54 06/05/18 17:00 Temperature Pulse Rate 89 91 H 84 Respiratory Rate 34 H 31 H 31 H Blood Pressure 158/71 H 161/72 H 161/72 H Pulse Oximetry 96 96 94 L Intake & Output 06/04/18 06/05/18 06/05/18 18:59 06:59 18:59 Intake Total 350 / 350 Balance 350 / 350 Weight 58.967 kg Intake: IV 350 / 350 Cardene Inj 25 MG In NS Inj 240 250 / 250 ML @ 5 MG/HR 50 mls/hr IV.CONT TITRATE PRN Rx#:[id number] KCl 10 mEq Premix Inj 10 meq In 100 / 100 100 ml @ 100 mls/hr IV.SIG ONCE ONE Rx#:[id number] Other: Date of Last Bowel Movement 06/04/18 - Constitutional no acute distress - Routine HEENT Exam Head: Present: normocephalic, atraumatic Eye: Present: EOMI, PERRL ENT: Present: mucous membranes moist, oropharynx clear, nares patent, external ear normal - Routine Neck Exam Present: supple, full ROM - Routine Respiratory Exam Present: CTA bilaterally - Routine Cardiovascular Exam Present: RRR, S1, S2 - Routine Abdominal Exam Present: soft, normoactive bowel sounds - Routine Extremities Exam Present: full ROM - Routine Skin Exam Present: intact - Routine Neurological Exam Present: oriented X3, CN II-XII intact, sensory deficit (Appreciates light touch sensation bilaterally), motor deficit (Right pronator drift), plantar reflex, moving all extremities, normal speech Results - Laboratory Findings CBC and BMP: 06/05/18 11:00 06/05/18 11:00 Abnormal lab findings: Abnormal Labs 06/05/18 06/05/18 06/05/18 11:00 11:00 11:00 Hgb 16.5 H MCHC 36.1 H Neut % (Auto) 76.7 H Jasper % (Auto) 8.2 H Baso % (Auto) 4.2 H Neut # (Auto) 7.9 H Baso # (Auto) 0.4 H APTT 22.6 L Potassium 3.3 L Estimated GFR 74 L POC Glucose Troponin I Less than 0.02 L Ur Leukocyte Esterase Urine Bacteria 06/05/18 06/05/18 11:08 12:55 Hgb MCHC Neut % (Auto) Jasper % (Auto) Baso % (Auto) Neut # (Auto) Baso # (Auto) APTT Potassium Estimated GFR POC Glucose 118 H Troponin I Ur Leukocyte Esterase Trace H Urine Bacteria Rare H - Diagnostic Findings Additional findings: Impressions Chest X-Ray 06/05/18 10:48 CONCLUSION: Mild cardiomegaly. Head CT 06/05/18 10:51 CONCLUSION: 1. Hemorrhage in the left brainstem. No significant mass effect or midline shift. Fourth ventricle remains patent. 2. Nonspecific white matter changes. . Assessment and Plan - Assessment (1) Brainstem hemorrhage Code(s): I61.3 - Nontraumatic intracerebral hemorrhage in brain stem Status: Acute (2) Hypertensive emergency Code(s): I16.1 - Hypertensive emergency Status: Acute (3) Alcohol abuse Code(s): F10.10 - Alcohol abuse, uncomplicated Status: Chronic - Plan 62-year-old lady with severe hypertension and associated left mid brain/ brainstem hemorrhage without hydrocephalus. The bleed is characteristic of a hypertensive hemorrhage. Recommend close monitoring in the ICU and hypertension control. MRI scan of the brain to rule out any underlying abnormality. Monitor for alcohol withdrawal symptoms. Mechanical DVT prophylaxis is chemical DVT prophylaxis is contraindicated given the brainstem hemorrhage. PT and OT rehabilitation. Counseled on alcohol cessation and stressed importance of regular blood pressure checks and medical follow-up. (1) Brainstem hemorrhage Qualifiers: Intracerebral hemorrhage etiology: nontraumatic
[2018-06-05 20:09] LABS: Amphetamine Screen,Urine Neg (Neg); Barbiturate Screen,Urine Neg (Neg); Cannabinoid Screen,Urine Neg (Neg)
[2018-06-05 20:11] LABS: Cocaine Screen,Urine Neg (Neg)
[2018-06-05 20:12] LABS: Opiate Screen,Urine Neg (Neg)
[2018-06-05] MEDS: Senna/Docusate Sodium 8.6/50 MG Tablet PO SCH (21:56)
[2018-06-05] MEDS: Famotidine 20 MG Tablet PO SCH (21:56)
[2018-06-05] MEDS: Famotidine PF Inj 20 MG/2 ML Vial IV.PUSH SCH (21:57)
[2018-06-06] MEDS ORDERED: Chlorhexidine Gluconate 2% 1 Pack (2 Cloths) TOPICAL PRN (04:00)
[2018-06-06] MEDS: Sod Chloride 0.9% Inj 1,000 ML IV.CONT SCH ×2 (04:02→15:52)
[2018-06-06] MEDS: niCARdipine Inj 25 MG in Sodium Chlor 0.9% Inj 240 ML IV.CONT PRN ×6 (04:02→21:55)
[2018-06-06] MEDS: Chlorhexidine Gluconate 2% 1 Pack (2 Cloths) TOPICAL SCH (04:04)
[2018-06-06 05:06] LABS: Baso # (Auto) 0.1 th/mm3 (0.0-0.2); Eos # (Auto) 0.1 th/mm3 (0.0-0.4); Eos % (Auto) 1.5 % (0.0-4.0); Hematocrit 42.5 % (35.0-46.0); Hemoglobin 14.5 gm/dL (11.6-15.3); Lymph # (Auto) 1.8 th/mm3 (1.0-4.8); Lymph % (Auto) 21.9 % (9.0-44.0); Mean Corpuscular Hemoglobin 31.8 pg (27.0-34.0); Mean Corpuscular Volume 93.6 fL (80.0-100.0); Mean Platelet Volume 7.4 fL (7.0-11.0); Mono # (Auto) 0.7 th/mm3 (0.0-0.9); Mono % (Auto) 8.9 % (0.0-8.0); Neut # (Auto) 5.4 th/mm3 (1.8-7.7); Neut % (Auto) 66.7 % (16.0-70.0); Platelet Count 287 th/mm3 (150-450); Red Blood Count 4.55 mil/mm3 (4.00-5.30); White Blood Count 8.1 th/mm3 (4.0-11.0)
[2018-06-06 05:12] LABS: Prothrombin Time 10.4 sec (9.8-11.6)
[2018-06-06 05:22] LABS: Anion Gap 10 meq/L (5-15); Blood Urea Nitrogen 7 mg/dL (7-18); Calcium 8.3 mg/dL (8.5-10.1); Carbon Dioxide 23.8 meq/L (21.0-32.0); Chloride 107 meq/L (98-107); Cholesterol 232 mg/dL (120-200); Glomerular Filtration Rate Greater Than 89 mL/min (>89); Glucose,Random 97 mg/dL (74-106); Magnesium 2.1 mg/dL (1.5-2.5); Sodium 141 meq/L (136-145)
[2018-06-06 05:23] LABS: Chol/HDL Ratio 3.19 Ratio; HDL Cholesterol 72.6 mg/dL (40.0-60.0); LDL Cholesterol,Calculated 144 mg/dL (0-99); Triglycerides 76 mg/dL (42-150)
--- NOTE | 2018-06-06 07:50 | CT ---
EXAM DATE: 06/06/2018 4:10 AM EDT AGE/SEX: 62 years / Female INDICATIONS: Cephalgia. Follow up Intracerebral Hemorrhage. CLINICAL DATA: This is the patient's subsequent encounter. Patient reports that signs and symptoms h ave been present for 2 days and indicates a pain score of 9/10. MEDICAL/SURGICAL HISTORY: Hypertension. None. RADIATION DOSE: 56.35 CTDI (mGy) COMPARISON: [facility], CT HEAD W/O CONTRAST, 06/05/2018. . TECHNIQUE: CT of the head without contrast. Using automated exposure control and adjustment of the mA and/or kV according to patient size, radiation dose was kept as low as reasonably achievable to ob tain optimal diagnostic quality images. DICOM format image data is available electronically for revi ew and comparison. FINDINGS: Reidentified is a brainstem hemorrhage and adjacent lacunar infarct on axial image 9. It is not signi ficantly changed. There is patchy white matter disease identified in the periventricular white matter unchanged. There are no new areas of hemorrhage or signs of acute infarction. No fractures are seen. CONCLUSION: 1. Stable appearance of the brain with stable intraparenchymal hemorrhage at the level of the xiang. . Electronically signed by: Remy Padgett MD 06/06/2018 7:49 AM EDT
[2018-06-06] MEDS: Famotidine PF Inj 20 MG/2 ML Vial IV.PUSH SCH ×2 (09:10→20:19)
[2018-06-06] MEDS: Famotidine 20 MG Tablet PO SCH ×2 (09:10→20:19)
[2018-06-06] MEDS: Senna/Docusate Sodium 8.6/50 MG Tablet PO SCH ×2 (09:10→20:19)
--- NOTE | 2018-06-06 10:02 | P.PNNS ---
Subjective Interval history: Pt awake and alert. She complains of a mild headache which she relates to not eating and not sleeping well. She denies any paresthesias in the extremities. She has good strength in her extremities and is ambulating to the bathroom with standby assistance. <Qamar Huitron - Last Filed: 06/06/18 09:57> Physical Exam Vital signs: Vital Signs 06/05/18 10:55 06/05/18 11:55 06/05/18 12:55 Temperature Pulse Rate 74 83 Respiratory Rate 16 16 16 Blood Pressure 245/105 H 215/102 H 232/107 H Pulse Oximetry 96 98 98 06/05/18 12:56 06/05/18 13:10 06/05/18 13:25 Temperature Pulse Rate 80 83 Respiratory Rate 16 16 Blood Pressure 192/86 H 178/84 H Pulse Oximetry 98 97 98 06/05/18 13:50 06/05/18 14:10 06/05/18 14:25 Temperature Pulse Rate 84 89 86 Respiratory Rate 16 16 16 Blood Pressure 175/85 H 170/76 H 170/75 H Pulse Oximetry 97 97 96 06/05/18 16:00 06/05/18 16:24 06/05/18 16:39 Temperature 98.4 F Pulse Rate 90 90 89 Respiratory Rate 19 41 H 34 H Blood Pressure 137/91 H 165/62 H 158/71 H Pulse Oximetry 97 97 96 06/05/18 16:54 06/05/18 17:00 06/05/18 18:00 Temperature Pulse Rate 91 H 84 89 Respiratory Rate 31 H 31 H 20 Blood Pressure 161/72 H 161/72 H 154/73 H Pulse Oximetry 96 94 L 96 06/05/18 19:00 06/05/18 20:00 06/05/18 21:00 Temperature 97.3 F L Pulse Rate 76 85 80 Respiratory Rate 22 21 16 Blood Pressure 161/74 H 137/65 134/65 Pulse Oximetry 93 L 93 L 95 06/05/18 22:00 06/05/18 23:00 06/06/18 00:00 Temperature 98.0 F Pulse Rate 82 90 74 Respiratory Rate 18 20 18 Blood Pressure 149/70 H 134/69 127/60 Pulse Oximetry 95 94 L 95 06/06/18 01:00 06/06/18 02:00 06/06/18 03:00 Temperature Pulse Rate 79 80 72 Respiratory Rate 16 18 13 Blood Pressure 138/63 143/68 H 134/63 Pulse Oximetry 93 L 5 L 95 06/06/18 04:00 06/06/18 05:00 06/06/18 06:00 Temperature 99.0 F Pulse Rate 72 82 82 Respiratory Rate 18 16 24 Blood Pressure 145/67 H 156/81 H 141/64 H Pulse Oximetry 96 93 L 95 Intake & Output 06/05/18 06/06/18 06/06/18 18:59 06:59 18:59 Intake Total 350 / 350 1750 / 1750 250 / 250 Balance 350 / 350 1750 / 1750 250 / 250 Weight 58.967 kg 59.2 kg Intake: IV 350 / 350 1750 / 1750 250 / 250 NS Inj 1,000 ML @ 84 mls/hr IV. 1000 / 1000 CONT .[id number] MAGDIEL Rx#: [id number] Cardene Inj 25 MG In NS Inj 240 250 / 250 750 / 750 250 / 250 ML @ 5 MG/HR 50 mls/hr IV.CONT TITRATE PRN Rx#:[id number] KCl 10 mEq Premix Inj 10 meq In 100 / 100 100 ml @ 100 mls/hr IV.SIG ONCE ONE Rx#:[id number] Other: # Voids 1 2 Date of Last Bowel Movement 06/04/18 06/04/18 # Bowel Movements 0 - Constitutional no acute distress - Routine HEENT Exam Head: Present: normocephalic, atraumatic Eye: Present: PERRL (Pupils 3mm bilaterally reactive bilaterally.). Absent: conjunctival icterus ENT: Present: oropharynx clear - Routine Neck Exam Present: trachea midline - Routine Respiratory Exam Present: CTA bilaterally. Absent: respiratory distress, rhonchi, wheezes - Routine Cardiovascular Exam Present: RRR, S1, S2, murmur (2/6 systolic ejection murmur LSB.) - Routine Abdominal Exam Present: soft, normoactive bowel sounds. Absent: tenderness, distended, firm - Routine Skin Exam Absent: cyanosis, erythema - Routine Neurological Exam Present: alert, oriented X3, moving all extremities, normal speech. Absent: sensory deficit, motor deficit, altered mental status, facial asymmetry - Detailed Neurological Exam: Coma Scale Eye Opening: Spontaneous Verbal Response: Oriented Motor Response: Obey commands [place] Coma Scale Total: 15 - Routine Psychiatric Exam Present: normal affect, normal thought process, cooperative. Absent: anxious, agitated <Qamar Huitron - Last Filed: 06/06/18 09:57> Vital signs: Vital Signs 06/05/18 12:55 06/05/18 12:56 06/05/18 13:10 Temperature Pulse Rate 83 80 Respiratory Rate 16 16 Blood Pressure 232/107 H 192/86 H Pulse Oximetry 98 98 97 06/05/18 13:25 06/05/18 13:50 06/05/18 14:10 Temperature Pulse Rate 83 84 89 Respiratory Rate 16 16 16 Blood Pressure 178/84 H 175/85 H 170/76 H Pulse Oximetry 98 97 97 06/05/18 14:25 06/05/18 16:00 06/05/18 16:24 Temperature 98.4 F Pulse Rate 86 90 90 Respiratory Rate 16 19 41 H Blood Pressure 170/75 H 137/91 H 165/62 H Pulse Oximetry 96 97 97 06/05/18 16:39 06/05/18 16:54 06/05/18 17:00 Temperature Pulse Rate 89 91 H 84 Respiratory Rate 34 H 31 H 31 H Blood Pressure 158/71 H 161/72 H 161/72 H Pulse Oximetry 96 96 94 L 06/05/18 18:00 06/05/18 19:00 06/05/18 20:00 Temperature 97.3 F L Pulse Rate 89 76 85 Respiratory Rate 20 22 21 Blood Pressure 154/73 H 161/74 H 137/65 Pulse Oximetry 96 93 L 93 L 06/05/18 21:00 06/05/18 22:00 06/05/18 23:00 Temperature Pulse Rate 80 82 90 Respiratory Rate 16 18 20 Blood Pressure 134/65 149/70 H 134/69 Pulse Oximetry 95 95 94 L 06/06/18 00:00 06/06/18 01:00 06/06/18 02:00 Temperature 98.0 F Pulse Rate 74 79 80 Respiratory Rate 18 16 18 Blood Pressure 127/60 138/63 143/68 H Pulse Oximetry 95 93 L 5 L 06/06/18 03:00 06/06/18 04:00 06/06/18 05:00 Temperature 99.0 F Pulse Rate 72 72 82 Respiratory Rate 13 18 16 Blood Pressure 134/63 145/67 H 156/81 H Pulse Oximetry 95 96 93 L 06/06/18 06:00 06/06/18 07:00 06/06/18 08:00 Temperature 98.4 F Pulse Rate 76 102 H 90 Respiratory Rate 15 48 H 24 Blood Pressure 135/61 157/72 H 149/68 H Pulse Oximetry 95 95 96 06/06/18 09:00 06/06/18 10:00 06/06/18 11:00 Temperature Pulse Rate 82 90 88 Respiratory Rate 16 46 H 38 H Blood Pressure 159/77 H 145/89 H 153/71 H Pulse Oximetry 97 97 97 06/06/18 12:00 Temperature 98.6 F Pulse Rate 86 Respiratory Rate 32 H Blood Pressure 152/72 H Pulse Oximetry 97 Intake & Output 06/05/18 06/06/18 06/06/18 18:59 06:59 18:59 Intake Total 350 / 350 1750 / 1750 500 / 500 Balance 350 / 350 1750 / 1750 500 / 500 Weight 58.967 kg 59.2 kg Intake: IV 350 / 350 1750 / 1750 500 / 500 NS Inj 1,000 ML @ 84 mls/hr IV. 1000 / 1000 CONT .[id number] MAGDIEL Rx#: [id number] Cardene Inj 25 MG In NS Inj 240 250 / 250 750 / 750 500 / 500 ML @ 5 MG/HR 50 mls/hr IV.CONT TITRATE PRN Rx#:[id number] KCl 10 mEq Premix Inj 10 meq In 100 / 100 100 ml @ 100 mls/hr IV.SIG ONCE ONE Rx#:[id number] Other: # Voids 1 2 Date of Last Bowel Movement 06/04/18 06/04/18 06/05/18 # Bowel Movements 0 <Lauri Pang - Last Filed: 06/06/18 12:44> Assessment and Plan - Assessment (1) Hypertensive emergency Code(s): I16.1 - Hypertensive emergency Status: Acute (2) Brainstem hemorrhage Code(s): I61.3 - Nontraumatic intracerebral hemorrhage in brain stem Status: Acute Qualifiers: Intracerebral hemorrhage etiology: nontraumatic (3) Alcohol abuse Code(s): F10.10 - Alcohol abuse, uncomplicated Status: Chronic - Plan 62-year-old lady with severe hypertension and associated left mid brain/ brainstem hemorrhage without hydrocephalus. The bleed is characteristic of a hypertensive hemorrhage. Continue with close monitoring in the ICU and hypertension control. MRI scan of the brain to rule out any underlying abnormality being done today. Continue to monitor for alcohol withdrawal symptoms. Continue with mechanical DVT prophylaxis as chemical DVT prophylaxis is contraindicated given the brainstem hemorrhage. PT and OT rehabilitation. Continue with blood pressure control. <Qamar Huitron - Last Filed: 06/06/18 09:57> - Assessment (1) Brainstem hemorrhage Code(s): I61.3 - Nontraumatic intracerebral hemorrhage in brain stem Status: Acute Qualifiers: Intracerebral hemorrhage etiology: nontraumatic (2) Hypertensive emergency Code(s): I16.1 - Hypertensive emergency Status: Acute (3) Alcohol abuse Code(s): F10.10 - Alcohol abuse, uncomplicated Status: Chronic - Attending Attestation The exam, history, and the medical decision-making described in the above note were completed with the assistance of the mid-level provider. I reviewed and agree with the findings presented. I attest that I had a [id number] encounter with the patient on the same day, and personally performed and documented my assessment and findings in the medical record. Follow-up CT scan of the head stable with no recurrent bleed. Stable neurologic examination. Hypertension regulated with Cardene drip. Continue with medical management and hypertension control. Discussed with patient and nursing staff. <Lauri Pang - Last Filed: 06/06/18 12:44> Progress Note: Quality - Stroke Contraindication Not Initiating IV-Tpa: Contraindicated Onset of Symptoms Date: 06/05/18 Onset of Symptoms Time: 08:45 (Approximate as per patient) Symptom Onset Unknown: Yes Contraindication Antithromb by Day Two: Contraindicated Rehab Services Assessed: Physical medicine initial examination and planning for rehabilitation <Qamar Huitron - Last Filed: 06/06/18 09:57>
--- NOTE | 2018-06-06 10:21 | MR ---
EXAM DATE: 06/06/2018 8:36 AM EDT AGE/SEX: 62 years / Female INDICATIONS: Bleed. CLINICAL DATA: This is the patient's initial encounter. Patient reports that signs and symptoms have been present for 2 days and indicates a pain score of 0/10. MEDICAL/SURGICAL HISTORY: Hypertension. Tubal ligation. Appendectomy. Tonsillectomy. COMPARISON: [facility] – [place], [place] HEAD W/O CONTRAST, 06/06/2018. . TECHNIQUE: Multiplanar, multisequence examination of the brain was performed without contrast. FINDINGS: Cerebrum: The ventricles are normal for age. No evidence of midline shift, mass lesion. No extraax ial fluid collections are seen. The pituitary gland and suprasellar cistern are normal in configurat ion. On the diffusion-weighted images there is a small area of restricted diffusion in the mid to pos terior right parietal lobe measuring about 6 mm. This suggests a small acute infarction. White Matter: Mild chronic white matter changes bilaterally characteristic for patient's age. Posterior Fossa: There is a focal area of acute intraparenchymal hemorrhage along the left side of th e midbrain. This was noted on the recent CT scan of the head. This is not significantly changed. The rest the posterior fossa is unremarkable and stable. Diffusion Imaging: Focal area of restricted diffusion in the mid to posterior right parietal lobe me asuring about 6 mm consistent with a small acute infarction. Extracranial: The visualized portions of the orbits are unremarkable. There is chronic sinus disease in both maxillary sinuses. CONCLUSION: 1. Stable focal area of intraparenchymal hemorrhage in the left midbrain. 2. 6 mm focal area of acute infarction involving the mid to posterior right parietal lobe. 3. Chronic bilateral maxillary sinus disease. Electronically signed by: Donell Grady MD 06/06/2018 10:19 AM EDT
--- NOTE | 2018-06-06 13:19 | P.PNCC ---
Subjective Subjective Remarks/Hospital Course: 62yF who presented to [facility] for sweating, "dry heaving", and "not feeling well". She reported "pins and needles" sensation to her right hand and foot, onset approximately 8:45 AM (30-45 mins prior to arrival to ED). Denies aphasia, slurred speech, drooling or sensation of facial droop, extremity weakness, difficulty ambulating, headache, or confusion. She was found to be profoundly hypertensive (SBP 260s) with hypertensive brainstem hemorrhage, was started on a nicardipine drip, and was subsequently transferred to the [facility] for neurocritical care and neurosurgery evaluation. She denies use of anticoagulants or antiplatelets, denies recent trauma, has a history of elevated BP previously but is not on any antihypertensives currently due to insurance issues; she does not remember which medication(s) she took in the past. She currently complains of nausea. Family history significant for multiple family members with HTN, father with nephrectomy (unclear etiology), and "tumor on his bowel". No known family history of CVA. 06/06- No overnight events, CTH shows brainstem hemorrhage is stable this, but MRI shows acute right parietal infarct. The patient offers no complaints. Objective Vital Signs / I&O: Vital Signs 06/05/18 13:25 06/05/18 13:50 06/05/18 14:10 Temperature Pulse Rate 83 84 89 Respiratory Rate 16 16 16 Blood Pressure 178/84 H 175/85 H 170/76 H Pulse Oximetry 98 97 97 06/05/18 14:25 06/05/18 16:00 06/05/18 16:24 Temperature 98.4 F Pulse Rate 86 90 90 Respiratory Rate 16 19 41 H Blood Pressure 170/75 H 137/91 H 165/62 H Pulse Oximetry 96 97 97 06/05/18 16:39 06/05/18 16:54 06/05/18 17:00 Temperature Pulse Rate 89 91 H 84 Respiratory Rate 34 H 31 H 31 H Blood Pressure 158/71 H 161/72 H 161/72 H Pulse Oximetry 96 96 94 L 06/05/18 18:00 06/05/18 19:00 06/05/18 20:00 Temperature 97.3 F L Pulse Rate 89 76 85 Respiratory Rate 20 22 21 Blood Pressure 154/73 H 161/74 H 137/65 Pulse Oximetry 96 93 L 93 L 06/05/18 21:00 06/05/18 22:00 06/05/18 23:00 Temperature Pulse Rate 80 82 90 Respiratory Rate 16 18 20 Blood Pressure 134/65 149/70 H 134/69 Pulse Oximetry 95 95 94 L 06/06/18 00:00 06/06/18 01:00 06/06/18 02:00 Temperature 98.0 F Pulse Rate 74 79 80 Respiratory Rate 18 16 18 Blood Pressure 127/60 138/63 143/68 H Pulse Oximetry 95 93 L 5 L 06/06/18 03:00 06/06/18 04:00 06/06/18 05:00 Temperature 99.0 F Pulse Rate 72 72 82 Respiratory Rate 13 18 16 Blood Pressure 134/63 145/67 H 156/81 H Pulse Oximetry 95 96 93 L 06/06/18 06:00 06/06/18 07:00 06/06/18 08:00 Temperature 98.4 F Pulse Rate 76 102 H 90 Respiratory Rate 15 48 H 24 Blood Pressure 135/61 157/72 H 149/68 H Pulse Oximetry 95 95 96 06/06/18 09:00 06/06/18 10:00 06/06/18 11:00 Temperature Pulse Rate 82 90 88 Respiratory Rate 16 46 H 38 H Blood Pressure 159/77 H 145/89 H 153/71 H Pulse Oximetry 97 97 97 06/06/18 12:00 Temperature 98.6 F Pulse Rate 86 Respiratory Rate 32 H Blood Pressure 152/72 H Pulse Oximetry 97 Intake & Output 06/05/18 06/06/18 06/06/18 18:59 06:59 18:59 Intake Total 350 / 350 1750 / 1750 500 / 500 Balance 350 / 350 1750 / 1750 500 / 500 Weight 58.967 kg 59.2 kg Intake: IV 350 / 350 1750 / 1750 500 / 500 NS Inj 1,000 ML @ 84 mls/hr IV. 1000 / 1000 CONT .[id number] MAGDIEL Rx#: [id number] Cardene Inj 25 MG In NS Inj 240 250 / 250 750 / 750 500 / 500 ML @ 5 MG/HR 50 mls/hr IV.CONT TITRATE PRN Rx#:[id number] KCl 10 mEq Premix Inj 10 meq In 100 / 100 100 ml @ 100 mls/hr IV.SIG ONCE ONE Rx#:[id number] Other: # Voids 1 2 Date of Last Bowel Movement 06/04/18 06/04/18 06/05/18 # Bowel Movements 0 Result Diagrams: 06/06/18 03:24 06/06/18 03:24 Objective Remarks: GEN: Well-appearing, no acute distress HEENT: NCAT, PERRL, no facial droop NECK: Trachea midline CARDIO: Regular rate and rhythm PULM: Clear to auscultation bilaterally ABD/GI: Soft and non-tender in all quadrants EXT/MSK: No lower extremity edema, warm and well-perfused SKIN: No rashes or lesions NEURO: GCS 15, A&Ox3, NIHSS 0 * Motor strength 5/5 and sensation intact to all extremities, no pronator drift * assembling motor builder II-XII intact, speech clear and fluent, no slurred speech or aphasia, no facial droop * Answers all questions appropriately and follows all commands, conversational * No focal neuro deficits PSYCH: Appropriate affect Assessment and Plan - Problem List (1) Brainstem hemorrhage Code(s): I61.3 - Nontraumatic intracerebral hemorrhage in brain stem Status: Acute (2) Hypertensive emergency Code(s): I16.1 - Hypertensive emergency Status: Acute (3) Ischemic cerebrovascular accident (CVA) Code(s): I63.9 - Cerebral infarction, unspecified Status: Acute - Assessment and Plan Plan: Assessment: 62yF presenting with hypertensive emergency and hypertensive brainstem hemorrhage on the left, ischemic CVA in right parietal lobe NEURO: * Neurosurgery following, neurology consulted for new finding of ischemic CVA ( I spoke with Dr. Hanks directly) * CTA head/ neck to r/o stenosis or vascular abnormality * Cardene gtt to keep SBP < 160 mmHg-- start PO lopressor today to decrease/ wean off gtt * Repeat CTH stable * Avoid all anticoagulants/ antiplatelets * q4h neuro checks * Monitor for signs of EtOH withdrawal; would like to avoid benzos in the acute setting unless absolutely necessary CARDIO: * BP control as noted above * Hyperlipidemia, start statin * Echo RESP: * Counseled patient on importance of smoking cessation * Nicotine patch * Incentive spirometer F/E/N: * Regular diet, d/c stress ulcer prophylaxis * ICU lyte repletion protocol HEME: * SCDs/ ambulation ID: * No active issues ENDO: * A1c pending, FSBG wnl x 24 hours, discontinue PROPHY: * Stress ulcer prophylaxis no longer indicated * Bowel regimen * SCDs/ ambulation, pharmacologic prophylaxis contraindicated in the setting of intracranial hemorrhage OVERALL: This patient remains critically ill but stable. Counseling/ Coordination of Care: Total critical care time spent is 40 minutes. This includes examining the patient, gathering history from someone other than the patient (i.e. chart review), discussing the patient's care with other providers, managing the patient's blood pressure, ordering and interpreting radiologic studies, ordering and interpreting laboratory values, re-evaluation at frequent intervals , and documentation. Amount of time is separate from teaching, counseling the patient and/or family, and exclusive of procedures. Code Status: Full Progress Note: Quality - Stroke Contraindication Not Initiating IV-Tpa: Contraindicated Onset of Symptoms Date: 06/05/18 Onset of Symptoms Time: 08:45 (Approximate as per patient) Symptom Onset Unknown: Yes Contraindication Antithromb by Day Two: Contraindicated Rehab Services Assessed: Physical medicine initial examination and planning for rehabilitation (1) Brainstem hemorrhage Qualifiers: Intracerebral hemorrhage etiology: nontraumatic
--- NOTE | 2018-06-06 14:39 | CT ---
EXAM DATE: 06/06/2018 1:18 PM EDT AGE/SEX: 62 years / Female INDICATIONS: Follow up bleed. CLINICAL DATA: This is the patient's subsequent encounter. Patient reports that signs and symptoms h ave been present for 2 days and indicates a pain score of 0/10. MEDICAL/SURGICAL HISTORY: Hypertension. Appendectomy. Tubal ligation. RADIATION DOSE: 29.19 CTDI (mGy) ; Combined studies COMPARISON: No prior exams available for comparison. TECHNIQUE: Volumetric scanning was performed using a multi-row detector CT scanner during bolus infu alphonso of 90 ml Omnipaque 350 (iohexol) nonionic water-soluble contrast as a cumulative dose for multi ple exams. The data was post processed with a variety of visualization algorithms including full vo lume maximum intensity projection, multi-planar sliding thin slab reformation, curved planar reformat ion, and surface rendering techniques. Using automated exposure control and adjustment of the mA and /or kV according to patient size, radiation dose was kept as low as reasonably achievable to obtain o ptimal diagnostic quality images. DICOM format image data is available electronically for review and comparison. FINDINGS: There is excellent visualization of the major intracranial arteries out to the second-order branch ve ssels. . The A1 and M1 segments are patent bilaterally. The anterior and middle cerebral vessels are patent. The basilar artery and posterior cerebral vessels are patent. However, there is a prominent c erebral aneurysm measuring 6 mm x 6 mm along the right super clinoid portion of the right internal ca rotid artery. 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 CONCLUSION: 1. There is a prominent cerebral aneurysm measuring 6 mm x 6 mm along the right super clinoid portio n of the right internal carotid artery. 2. 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 Electronically signed by: Donell Grady MD 06/06/2018 2:38 PM EDT
--- NOTE | 2018-06-06 15:09 | CT ---
EXAM DATE: 06/06/2018 1:18 PM EDT AGE/SEX: 62 years / Female INDICATIONS: Follow up bleed. CLINICAL DATA: This is the patient's subsequent encounter. Patient reports that signs and symptoms h ave been present for 2 days and indicates a pain score of 0/10. MEDICAL/SURGICAL HISTORY: Hypertension. Appendectomy. Tubal ligation. RADIATION DOSE: 29.19 CTDI (mGy) ; Combined studies COMPARISON: No prior exams available for comparison. TECHNIQUE: Volumetric scanning was performed using a multirow detector CT scanner during bolus infus ion of 90 ml Omnipaque 350 (iohexol) nonionic water-soluble contrast as a cumulative dose for multip le exams. The data was postprocessed with a variety of visualization algorithms including full-volu me maximum intensity projection, multiplanar sliding thin-slab reformation, curved-planar reformation , and surface-rendering techniques. Using automated exposure control and adjustment of the mA and/or kV according to patient size, radiation dose was kept as low as reasonably achievable to obtain opti mal diagnostic quality images. DICOM format image data is available electronically for review and co mparison. Percent stenosis is calculated using the diameter of the stenotic region over the diameter of the nor mal distal internal carotid artery. FINDINGS: Aortic Arch: There is two-vessel bovine type arch anatomy. The proximal arch vessels are diffusely d iseased. There are tandem moderate stenoses of the left subclavian artery origin and proximal subclav rosey artery secondary to bulky mixed plaque. There are tandem mild stenoses of the brachiocephalic guido gin Right Carotid: Mild stenoses of the common carotid artery distally secondary to noncalcified plaque. Bulky calcified plaque extending from the carotid bulb to the origin of the internal carotid artery. Resultant approximately 65% stenosis. Internal carotid artery is otherwise patent to the skull base. External carotid artery is intact.Left Carotid: Tandem [id number] stenoses of the common carot id origin and proximal common carotid artery secondary to noncalcified plaque. Long segment mild sten osis of the mid common carotid artery. Bulky calcified plaque in the carotid bulb with complete occlu alphonso of the internal carotid artery. External carotid artery is patent. Vertebrals: Focal mild to moderate stenosis of the very proximal left vertebral artery. Vertebral ar teries are otherwise symmetric in appearance and patent. General Findings: Lung apices are clear. Thyroid is unremarkable by CT. No significant adenopathy. CONCLUSION: 1. Diffusely diseased proximal arch vessels with tandem moderate stenoses of the left subclavian art sarah and left common carotid artery. 2. Complete occlusion of the left internal carotid artery. 3. Bulky calcified plaque in the right carotid bulb extending to the internal carotid origin with re sultant approximately 65% stenosis. 4. Focal mild to moderate stenosis of the very proximal left vertebral artery. Electronically signed by: Jacoby Alberts MD 06/06/2018 3:07 PM EDT
[2018-06-06] MEDS: Metoprolol Tartrate 25 MG Tablet PO SCH ×2 (15:48→20:19)
--- NOTE | 2018-06-06 17:26 | P.CONNEU ---
History of Present Illness Service: Neurology Primary Care Provider: No Primary Care Physician Family Provider: No Primary Care Physician Chief Complaint: Stroke History of Present Illness: 62-year-old female admitted for right-sided weakness nausea emesis and found to have severe hypertension and intra-cranial hemorrhage. CT brain scan demonstrated a left midbrain hemorrhage. Patient seen by critical -care neurosurgery. She had an MRI brain scan performed which demonstrated the hemorrhage in addition to a tiny infarct in the right subcortical posterior MCA region. Patient states she lost health insurance and as result has not been seeing a primary care doctor. She is supposed to be taking blood pressure medications and statin medications. She admits to smoking a pack a day for the past over 40 years. She is not taking any blood thinner Currently denies any headache focal weakness vision loss or language disturbance. Feels well. She also was told that she had a occlusion of the left carotid back in 2011. She denies any monocular vision loss Review of Systems All other systems reviewed negative except as stated in HPI [facility] - History History Provided By: Patient - Medical History Medical History: Medical History (Last Reviewed 06/06/18 @ 09:44 by Luisa Wiley) HTN (hypertension) Pancreatitis, chronic - Surgical History Surgical History: Surgical History (Last Reviewed 06/06/18 @ 07:28 by Jessica Barillas) History of appendectomy History of tubal ligation - Tobacco History Second Hand Smoke Exposure: No Tobacco Use In Past 30 Days: Yes Smoking Status: Current every day smoker Tobacco Type: Cigarettes - Alcohol History How Often Do You Have a Drink Containing Alcohol: 4 or more times a week - Substance Use History Substance History: No History of Abuse - Immunization History Tetanus Immunization: >5 Years Hx Influenza Vaccine This Season: No Medications and Allergies Active Medications: Active Medications Al Hydroxide/Mg Hydroxide (Milk Of Master Liq) 30 ml PO Q12H PRN PRN Reason: Mild Constipation Bisacodyl (Dulcolax Supp) 10 mg RECTAL DAILY PRN PRN Reason: SEVERE CONSITIPATION Chlorhexidine Gluconate (Chlorhexidine 2% Cloth) 3 pack TOPICAL DAILY@0400 [facility] Stop: 06/11/18 03:59 Last Admin: 06/06/18 04:04 Dose: 3 pack Chlorhexidine Gluconate (Chlorhexidine 2% Cloth) 3 pack TOPICAL DAILY@0400 PRN PRN Reason: Extra cloth needed Stop: 06/11/18 03:59 Famotidine (Pepcid) 20 mg PO BID [facility] Last Admin: 06/06/18 09:10 Dose: 20 mg Famotidine (Pepcid Pf Inj) 20 mg IV.PUSH Q12HR [facility] Last Admin: 06/06/18 09:10 Dose: Not Given Nicardipine HCl 25 mg/ Sodium (Chloride) 250 mls @ 50 mls/hr IV.CONT TITRATE PRN; Protocol PRN Reason: Per Protocol Last Admin: 06/06/18 15:48 Dose: 9 mg/hr, 90 mls/hr Magnesium Sulfate 4 gm/ Sodium (Chloride) 100 mls @ 50 mls/hr IV.SIG UNSCH PRN PRN Reason: For Magnesium 0.9 - 1.1 mg/dL Magnesium Sulfate 2 gm/ Sodium (Chloride) 100 mls @ 50 mls/hr IV.SIG UNSCH PRN PRN Reason: For Magnesium 1.2 - 1.6 mg/dL Potassium Chloride (Kcl 40 Meq Premix Inj) 40 meq in 100 mls @ 25 mls/hr IV.SIG Q2H PRN PRN Reason: For Potassium 2.8 - 3.2 mEq/L Potassium Chloride (Kcl 20 Meq Premix Inj) 20 meq in 100 mls @ 50 mls/hr IV.SIG Q2H PRN PRN Reason: For Potassium 3.3 - 3.5 mEq/L Potassium Chloride (Kcl 40 Meq Premix Inj) 40 meq in 100 mls @ 25 mls/hr IV.SIG UNSCH PRN PRN Reason: For Potassium 3.3 - 3.5 mEq/L Potassium Chloride (Kcl 20 Meq Premix Inj) 20 meq in 100 mls @ 50 mls/hr IV.SIG Q2H PRN PRN Reason: For Potassium 2.8 - 3.2 mEq/L Potassium Phosphate 30 mmol/ (Sodium Chloride) 260 mls @ 42 mls/hr IV.SIG UNSCH PRN PRN Reason: SEE LABEL COMMENTS Sodium Phosphate 30 mmol/ (Sodium Chloride) 260 mls @ 42 mls/hr IV.SIG UNSCH PRN PRN Reason: For Phosphorus < 2.5 mg/dL Lactulose (Lactulose Liq) 30 ml PO DAILY PRN PRN Reason: SEVERE CONSITIPATION Magnesium Oxide (Mag-Ox) 800 mg PO UNSCH PRN PRN Reason: For Magnesium 1.2 - 1.6 mg/dL Metoclopramide HCl (Reglan Inj) 10 mg IV.PUSH Q8H PRN; Protocol PRN Reason: NAUSEA OR VOMITING Metoprolol Tartrate (Lopressor) 25 mg PO BID [facility] Last Admin: 06/06/18 15:48 Dose: 25 mg Nicotine (Habitrol 14 Mg Patch.24 Hr) 1 patch T-DERMAL DAILY [facility] Last Admin: 06/06/18 09:10 Dose: 1 patch Patch Removal (Remove Old Patch) 1 each T-DERMAL DAILY [facility] Last Admin: 06/06/18 09:11 Dose: 1 each Potassium Bicarb/Potassium Chloride (K-Lyte Cl Eff) 50 meq PO UNSCH PRN PRN Reason: For Potassium 3.3 - 3.5 mEq/L Potassium Phosphate (K-Phos Original) 2,000 mg PO Q4H PRN PRN Reason: Phosphorus Less Than 2.5 mg/dL Potassium Phosphate (K-Phos Original) 2,000 mg PO UNSCH PRN PRN Reason: SEE LABEL COMMENTS Last Admin: 06/06/18 09:08 Dose: 2,000 mg Pravastatin Sodium (Pravachol) 40 mg PO [facility] Senna/Docusate Sodium (Priscilla-Colace) 1 tab PO BID [facility] Last Admin: 06/06/18 09:10 Dose: 1 tab Sennosides (Senokot) 17.2 mg PO Q12H PRN PRN Reason: Moderate Constipation Sodium Chloride (Ns Flush) 2 ml IV.FLUSH PRN PRN PRN Reason: FLUSH AFTER USING IV ACCESS Sodium Chloride (Ns Flush) 2 ml IV.FLUSH BID [facility] Last Admin: 06/06/18 09:10 Dose: 2 ml Sodium Chloride (Ns Flush) 2 ml IV.FLUSH PRN PRN PRN Reason: FLUSH AFTER USING IV ACCESS Allergies Allergy/AdvReac Type Severity Reaction Status Date / Time No Known Allergies Allergy Unverified 06/05/18 16:24 Home Medications Medication Instructions Recorded Confirmed Type ranitidine HCl 150 mg PO DAILY 06/05/18 06/05/18 History Exam Vital signs: Vital Signs 06/05/18 18:00 06/05/18 19:00 06/05/18 20:00 Temperature 97.3 F L Pulse Rate 89 76 85 Respiratory Rate 20 22 21 Blood Pressure 154/73 H 161/74 H 137/65 Pulse Oximetry 96 93 L 93 L 06/05/18 21:00 06/05/18 22:00 06/05/18 23:00 Temperature Pulse Rate 80 82 90 Respiratory Rate 16 18 20 Blood Pressure 134/65 149/70 H 134/69 Pulse Oximetry 95 95 94 L 06/06/18 00:00 06/06/18 01:00 06/06/18 02:00 Temperature 98.0 F Pulse Rate 74 79 80 Respiratory Rate 18 16 18 Blood Pressure 127/60 138/63 143/68 H Pulse Oximetry 95 93 L 5 L 06/06/18 03:00 06/06/18 04:00 06/06/18 05:00 Temperature 99.0 F Pulse Rate 72 72 82 Respiratory Rate 13 18 16 Blood Pressure 134/63 145/67 H 156/81 H Pulse Oximetry 95 96 93 L 06/06/18 06:00 06/06/18 07:00 06/06/18 08:00 Temperature 98.4 F Pulse Rate 76 102 H 90 Respiratory Rate 15 48 H 24 Blood Pressure 135/61 157/72 H 149/68 H Pulse Oximetry 95 95 96 06/06/18 09:00 06/06/18 10:00 06/06/18 11:00 Temperature Pulse Rate 82 90 88 Respiratory Rate 16 46 H 38 H Blood Pressure 159/77 H 145/89 H 153/71 H Pulse Oximetry 97 97 97 06/06/18 12:00 Temperature 98.6 F Pulse Rate 86 Respiratory Rate 32 H Blood Pressure 152/72 H Pulse Oximetry 97 Intake & Output 06/05/18 06/06/18 06/06/18 18:59 06:59 18:59 Intake Total 350 / 350 1750 / 1750 1350 / 1350 Balance 350 / 350 1750 / 1750 1350 / 1350 Weight 58.967 kg 59.2 kg Intake: IV 350 / 350 1750 / 1750 1350 / 1350 NS Inj 1,000 ML @ 84 mls/hr IV. 1000 / 1000 600 / 600 CONT .[id number] MAGDIEL Rx#: [id number] Cardene Inj 25 MG In NS Inj 240 250 / 250 750 / 750 750 / 750 ML @ 5 MG/HR 50 mls/hr IV.CONT TITRATE PRN Rx#:[id number] KCl 10 mEq Premix Inj 10 meq In 100 / 100 100 ml @ 100 mls/hr IV.SIG ONCE ONE Rx#:[id number] Other: # Voids 1 2 Date of Last Bowel Movement 06/04/18 06/04/18 06/05/18 # Bowel Movements 0 Narrative: GENERAL: in NAD, SKIN: Warm and dry. HEAD: Atraumatic. Normocephalic. EYES: Pupils equal and round. No scleral icterus. ENT: No nasal bleeding or discharge. Mucous membranes pink and moist. NECK: Trachea midline. No JVD. CARDIOVASCULAR: Regular rate and rhythm. RESPIRATORY: No accessory muscle use. GASTROINTESTINAL: Abdomen soft, non-tender, nondistended. MUSCULOSKELETAL: Extremities without clubbing, cyanosis, or edema. No obvious deformities. NEUROLOGICAL: Awake and alert. No aphasia, oriented x3 fluent articulate, No facial asymmetry, OU 3-2mm, eomi, VFF, No drift, Motor grossly within normal limits. Five out of 5 muscle strength in the arms and legs. Tone normal in all 4 limbs, Sensory normal in all 4 extremities to pin, msr 1-2+ sym, no clonus, planterflexor, PSYCHIATRIC: Appropriate mood and affect; insight and judgment normal. - Constitutional no acute distress - Routine HEENT Exam Head: Present: normocephalic Eye: Present: EOMI Results - Labs CBC & Chem 7: 06/06/18 03:24 06/06/18 03:24 Labs: Laboratory Results - last 24 hr 06/05/18 06/05/18 06/05/18 17:34 18:00 23:29 WBC RBC Hgb Hct MCV MCH MCHC RDW Plt Count MPV Neut % (Auto) Lymph % (Auto) Hardy % (Auto) Eos % (Auto) Baso % (Auto) Neut # (Auto) Lymph # (Auto) Hardy # (Auto) Eos # (Auto) Baso # (Auto) WBC Differential Differential Comment PT INR Sodium Potassium Chloride Carbon Dioxide Anion Gap BUN Creatinine Estimated GFR POC Glucose 109 116 H Random Glucose Calcium Magnesium Triglycerides Cholesterol LDL Cholesterol, Calc HDL Cholesterol Cholesterol/HDL Ratio Nasal Screen MRSA (PCR) Urine Opiates Screen Neg Ur Barbiturates Screen Neg Ur Amphetamines Screen Neg U Benzodiazepines Scrn Neg Urine Cocaine Screen Neg U Cannabinoids Screen Neg 06/05/18 06/06/18 06/06/18 Unknown 03:24 03:24 WBC 8.1 RBC 4.55 Hgb 14.5 D Hct 42.5 MCV 93.6 MCH 31.8 MCHC 34.0 RDW 15.0 Plt Count 287 MPV 7.4 Neut % (Auto) 66.7 Lymph % (Auto) 21.9 Hardy % (Auto) 8.9 H Eos % (Auto) 1.5 Baso % (Auto) 1.0 Neut # (Auto) 5.4 Lymph # (Auto) 1.8 Hardy # (Auto) 0.7 Eos # (Auto) 0.1 Baso # (Auto) 0.1 WBC Differential . Differential Comment Auto diff final PT 10.4 INR 1.0 Sodium Potassium Chloride Carbon Dioxide Anion Gap BUN Creatinine Estimated GFR POC Glucose Random Glucose Calcium Magnesium Triglycerides Cholesterol LDL Cholesterol, Calc HDL Cholesterol Cholesterol/HDL Ratio Nasal Screen MRSA (PCR) Not detected Urine Opiates Screen Ur Barbiturates Screen Ur Amphetamines Screen U Benzodiazepines Scrn Urine Cocaine Screen U Cannabinoids Screen 06/06/18 06/06/18 03:24 11:15 WBC RBC Hgb Hct MCV MCH MCHC RDW Plt Count MPV Neut % (Auto) Lymph % (Auto) Hardy % (Auto) Eos % (Auto) Baso % (Auto) Neut # (Auto) Lymph # (Auto) Hardy # (Auto) Eos # (Auto) Baso # (Auto) WBC Differential Differential Comment PT INR Sodium 141 Potassium 3.0 L Chloride 107 Carbon Dioxide 23.8 Anion Gap 10 BUN 7 Creatinine 0.53 Estimated GFR Greater than 89 POC Glucose 101 Random Glucose 97 Calcium 8.3 L Magnesium 2.1 Triglycerides 76 Cholesterol 232 H LDL Cholesterol, Calc 144 H HDL Cholesterol 72.6 H Cholesterol/HDL Ratio 3.19 Nasal Screen MRSA (PCR) Urine Opiates Screen Ur Barbiturates Screen Ur Amphetamines Screen U Benzodiazepines Scrn Urine Cocaine Screen U Cannabinoids Screen - Imaging Impressions Head CTA 06/06/18 00:00 CONCLUSION: 1. 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 2. 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 Head MRI 06/06/18 00:00 CONCLUSION: 1. Stable focal area of intraparenchymal hemorrhage in the left midbrain. 2. 6 mm focal area of acute infarction involving the mid to posterior right parietal lobe. 3. Chronic bilateral maxillary sinus disease. Neck CTA 06/06/18 00:00 CONCLUSION: 1. Diffusely diseased proximal arch vessels with tandem moderate stenoses of the left subclavian artery and left common carotid artery. 2. Complete occlusion of the left internal carotid artery. 3. Bulky calcified plaque in the right carotid bulb extending to the internal carotid origin with resultant approximately 65% stenosis. 4. Focal mild to moderate stenosis of the very proximal left vertebral artery. Head CT 06/06/18 05:00 CONCLUSION: 1. Stable appearance of the brain with stable intraparenchymal hemorrhage at the level of the xiang. . Review/Management - Diagnosis (1) Brainstem hemorrhage Code(s): I61.3 - Nontraumatic intracerebral hemorrhage in brain stem Status: Acute Current Visit: Yes (2) Acute right MCA stroke Code(s): I63.511 - Cerebral infarction due to unspecified occlusion or stenosis of right middle cerebral artery Status: Acute Current Visit: Yes (3) Tobacco use Code(s): Z72.0 - Tobacco use Status: Acute Current Visit: Yes (4) Left carotid artery occlusion Code(s): I65.22 - Occlusion and stenosis of left carotid artery Status: Acute Current Visit: Yes (5) Hypertensive emergency Code(s): I16.1 - Hypertensive emergency Status: Acute Current Visit: Yes (6) Intracranial vascular stenosis Code(s): I67.9 - Cerebrovascular disease, unspecified Status: Acute Current Visit: Yes - Review/Management Plan: Patient with a left midbrain hemorrhage in addition to a small right subcortical infarct Mechanism for both insults likely related to chronic small vessel disease secondary to chronic untreated hypertension, dyslipidemia, chronic tobacco use She is a history of known left internal carotid artery occlusion Neurologically doing quite well Recommendation She will need to be on aspirin once the hemorrhage resolves and is cleared by neurosurgery Avoid hypotension as she is risk for ischemia with left carotid occlusion Initiate statin Tobacco cessation Reviewed radiological studies with the patient Behavioral modification and risk factor reduction. Weight loss, blood pressure control, blood sugar control, lipid control. Exercise (1) Brainstem hemorrhage Qualifiers: Intracerebral hemorrhage etiology: nontraumatic
[2018-06-06 18:02] LABS: Hemoglobin A1c 5.5 % (4.3-6.0)
[2018-06-06] MEDS ORDERED: LORazepam 1 MG Tablet PO PRN (22:37)
[2018-06-06] MEDS: Haloperidol Inj 5 MG/ML Ampul IV.PUSH PRN (22:56)
[2018-06-07] MEDS: Haloperidol Inj 5 MG/ML Ampul IV.PUSH PRN (00:08)
[2018-06-07 03:54] LABS: Anion Gap 11 meq/L (5-15); Blood Urea Nitrogen 6 mg/dL (7-18); Calcium 8.7 mg/dL (8.5-10.1); Chloride 107 meq/L (98-107); Glomerular Filtration Rate Greater Than 89 mL/min (>89); Glucose,Random 101 mg/dL (74-106); Sodium 140 meq/L (136-145)
[2018-06-07 04:00] LABS: Baso # (Auto) 0.1 th/mm3 (0.0-0.2); Eos # (Auto) 0.1 th/mm3 (0.0-0.4); Eos % (Auto) 1.7 % (0.0-4.0); Hematocrit 43.5 % (35.0-46.0); Hemoglobin 14.8 gm/dL (11.6-15.3); Lymph # (Auto) 1.4 th/mm3 (1.0-4.8); Lymph % (Auto) 20.3 % (9.0-44.0); Mean Corpuscular HGB Conc 34.1 % (32.0-36.0); Mean Corpuscular Volume 93.8 fL (80.0-100.0); Mean Platelet Volume 7.2 fL (7.0-11.0); Mono # (Auto) 0.5 th/mm3 (0.0-0.9); Mono % (Auto) 6.9 % (0.0-8.0); Neut # (Auto) 4.9 th/mm3 (1.8-7.7); Neut % (Auto) 70.1 % (16.0-70.0); Platelet Count 287 th/mm3 (150-450); Red Blood Count 4.63 mil/mm3 (4.00-5.30); Red Cell Distribution Width 15.2 % (11.6-17.2)
[2018-06-07] MEDS: Potassium Chlor 20 mEq Premix 20 MEQ/100 ML PIGGYBACK IV.SIG PRN ×5 (04:44→15:43)
[2018-06-07] MEDS: Chlorhexidine Gluconate 2% 1 Pack (2 Cloths) TOPICAL SCH (04:44)
[2018-06-07] MEDS: Senna/Docusate Sodium 8.6/50 MG Tablet PO SCH ×2 (08:06→20:51)
[2018-06-07] MEDS: Metoprolol Tartrate 25 MG Tablet PO SCH ×3 (08:06→17:16)
[2018-06-07] MEDS: Famotidine 20 MG Tablet PO SCH ×2 (08:06→20:50)
[2018-06-07] MEDS: Famotidine PF Inj 20 MG/2 ML Vial IV.PUSH SCH ×2 (08:07→20:51)
--- NOTE | 2018-06-07 08:56 | P.PNCC ---
Subjective Subjective Remarks/Hospital Course: DUPLICATE NOTE Objective Vital Signs / I&O: Vital Signs 06/06/18 09:00 06/06/18 10:00 06/06/18 11:00 Temperature Pulse Rate 82 90 88 Respiratory Rate 16 46 H 38 H Blood Pressure 159/77 H 145/89 H 153/71 H Pulse Oximetry 97 97 97 06/06/18 12:00 06/06/18 13:00 06/06/18 14:00 Temperature 98.6 F Pulse Rate 86 90 90 Respiratory Rate 32 H 19 17 Blood Pressure 152/72 H 148/72 H 152/70 H Pulse Oximetry 97 98 98 06/06/18 15:00 06/06/18 16:00 06/06/18 17:00 Temperature 98.3 F Pulse Rate 92 H 88 84 Respiratory Rate 21 19 19 Blood Pressure 158/60 H 152/72 H 151/72 H Pulse Oximetry 97 94 L 96 06/06/18 18:00 06/06/18 19:00 06/06/18 20:00 Temperature 98.6 F Pulse Rate 70 76 88 Respiratory Rate 16 16 21 Blood Pressure 132/66 147/72 H 126/55 L Pulse Oximetry 92 L 95 95 06/06/18 21:00 06/06/18 22:00 06/06/18 23:00 Temperature Pulse Rate 80 62 70 Respiratory Rate 20 16 18 Blood Pressure 139/66 140/68 145/70 H Pulse Oximetry 98 95 96 06/07/18 00:00 06/07/18 01:00 06/07/18 02:00 Temperature 97.7 F Pulse Rate 61 54 L 58 L Respiratory Rate 15 15 13 Blood Pressure 147/75 H 112/52 L 122/55 L Pulse Oximetry 94 L 94 L 94 L 06/07/18 03:00 06/07/18 04:00 06/07/18 05:00 Temperature 98.6 F Pulse Rate 62 60 62 Respiratory Rate 18 15 19 Blood Pressure 145/66 H 143/87 H 128/58 L Pulse Oximetry 94 L 94 L 94 L 06/07/18 06:00 06/07/18 08:27 Temperature Pulse Rate 69 Respiratory Rate 22 Blood Pressure 160/81 H Pulse Oximetry 97 99 Intake & Output 06/06/18 06/07/18 06/07/18 18:59 06:59 18:59 Intake Total 2320 / 2320 490 / 490 100 / 100 Balance 2320 / 2320 490 / 490 100 / 100 Weight 60.2 kg Intake: IV 1600 / 1600 250 / 250 100 / 100 NS Inj 1,000 ML @ 84 mls/hr IV. 600 / 600 CONT .[id number] MAGDIEL Rx#: [id number] Cardene Inj 25 MG In NS Inj 240 1000 / 1000 250 / 250 ML @ 5 MG/HR 50 mls/hr IV.CONT TITRATE PRN Rx#:[id number] KCl 20 mEq Premix Inj 20 meq In 100 / 100 100 ml @ 50 mls/hr IV.SIG Q2H PRN Rx#:[id number] Oral 720 / 720 240 / 240 Other: # Voids 4 2 Date of Last Bowel Movement 06/05/18 06/07/18 # Bowel Movements 0 1 Result Diagrams: 06/07/18 02:46 06/07/18 02:46 Objective Remarks: DUPLICATE NOTE Assessment and Plan - Assessment and Plan Plan: DUPLICATE NOTE Progress Note: Quality - Stroke Contraindication Not Initiating IV-Tpa: Contraindicated Onset of Symptoms Date: 06/05/18 Onset of Symptoms Time: 08:45 (Approximate as per patient) Symptom Onset Unknown: Yes Contraindication Antithromb by Day Two: Contraindicated Rehab Services Assessed: Physical medicine initial examination and planning for rehabilitation
--- NOTE | 2018-06-07 08:59 | P.PNCC ---
Subjective Subjective Remarks/Hospital Course: 62yF who presented to [facility] for sweating, "dry heaving", and "not feeling well". She reported "pins and needles" sensation to her right hand and foot, onset approximately 8:45 AM (30-45 mins prior to arrival to ED). Denies aphasia, slurred speech, drooling or sensation of facial droop, extremity weakness, difficulty ambulating, headache, or confusion. She was found to be profoundly hypertensive (SBP 260s) with hypertensive brainstem hemorrhage, was started on a nicardipine drip, and was subsequently transferred to the [facility] for neurocritical care and neurosurgery evaluation. She denies use of anticoagulants or antiplatelets, denies recent trauma, has a history of elevated BP previously but is not on any antihypertensives currently due to insurance issues; she does not remember which medication(s) she took in the past. She currently complains of nausea. Family history significant for multiple family members with HTN, father with nephrectomy (unclear etiology), and "tumor on his bowel". No known family history of CVA. 06/06- No overnight events, CTH shows brainstem hemorrhage is stable this, but MRI shows acute right parietal infarct. The patient offers no complaints. 06/07: Sitting up in bed off Cardene infusion. Blood pressure control is improved. CT of the brain repeat yesterday shows stable brainstem hemorrhage. CTA neck moderate stenoses of the left subclavian artery and left common carotid artery. Complete occlusion of the left internal carotid artery. R ICA 65 % stenosis. CTA brain showed cerebral aneurysm measuring 6 mm x 6 mm along the right super clinoid portion of the right internal carotid artery. Objective Vital Signs / I&O: Vital Signs 06/06/18 09:00 06/06/18 10:00 06/06/18 11:00 Temperature Pulse Rate 82 90 88 Respiratory Rate 16 46 H 38 H Blood Pressure 159/77 H 145/89 H 153/71 H Pulse Oximetry 97 97 97 06/06/18 12:00 06/06/18 13:00 06/06/18 14:00 Temperature 98.6 F Pulse Rate 86 90 90 Respiratory Rate 32 H 19 17 Blood Pressure 152/72 H 148/72 H 152/70 H Pulse Oximetry 97 98 98 06/06/18 15:00 06/06/18 16:00 06/06/18 17:00 Temperature 98.3 F Pulse Rate 92 H 88 84 Respiratory Rate 21 19 19 Blood Pressure 158/60 H 152/72 H 151/72 H Pulse Oximetry 97 94 L 96 06/06/18 18:00 06/06/18 19:00 06/06/18 20:00 Temperature 98.6 F Pulse Rate 70 76 88 Respiratory Rate 16 16 21 Blood Pressure 132/66 147/72 H 126/55 L Pulse Oximetry 92 L 95 95 06/06/18 21:00 06/06/18 22:00 06/06/18 23:00 Temperature Pulse Rate 80 62 70 Respiratory Rate 20 16 18 Blood Pressure 139/66 140/68 145/70 H Pulse Oximetry 98 95 96 06/07/18 00:00 06/07/18 01:00 06/07/18 02:00 Temperature 97.7 F Pulse Rate 61 54 L 58 L Respiratory Rate 15 15 13 Blood Pressure 147/75 H 112/52 L 122/55 L Pulse Oximetry 94 L 94 L 94 L 06/07/18 03:00 06/07/18 04:00 06/07/18 05:00 Temperature 98.6 F Pulse Rate 62 60 62 Respiratory Rate 18 15 19 Blood Pressure 145/66 H 143/87 H 128/58 L Pulse Oximetry 94 L 94 L 94 L 06/07/18 06:00 06/07/18 08:27 Temperature Pulse Rate 69 Respiratory Rate 22 Blood Pressure 160/81 H Pulse Oximetry 97 99 Intake & Output 06/06/18 06/07/18 06/07/18 18:59 06:59 18:59 Intake Total 2320 / 2320 490 / 490 100 / 100 Balance 2320 / 2320 490 / 490 100 / 100 Weight 60.2 kg Intake: IV 1600 / 1600 250 / 250 100 / 100 NS Inj 1,000 ML @ 84 mls/hr IV. 600 / 600 CONT .[id number] MAGDIEL Rx#: [id number] Cardene Inj 25 MG In NS Inj 240 1000 / 1000 250 / 250 ML @ 5 MG/HR 50 mls/hr IV.CONT TITRATE PRN Rx#:[id number] KCl 20 mEq Premix Inj 20 meq In 100 / 100 100 ml @ 50 mls/hr IV.SIG Q2H PRN Rx#:[id number] Oral 720 / 720 240 / 240 Other: # Voids 4 2 Date of Last Bowel Movement 06/05/18 06/07/18 # Bowel Movements 0 1 Result Diagrams: 06/07/18 02:46 06/07/18 02:46 Objective Remarks: GEN: Well-appearing, no acute distress HEENT: NCAT, PERRL, no facial droop NECK: Trachea midline CARDIO: Regular rate and rhythm PULM: Clear to auscultation bilaterally ABD/GI: Soft and non-tender in all quadrants EXT/MSK: No lower extremity edema, warm and well-perfused SKIN: No rashes or lesions NEURO: GCS 15, A&Ox3, NIHSS 0 * Motor strength 5/5 and sensation intact to all extremities, no pronator drift * supervisor tile and mottle II-XII intact, speech clear and fluent, no slurred speech or aphasia, no facial droop * Normal speech * No focal neuro deficits PSYCH: Appropriate affect Assessment and Plan - Assessment and Plan Plan: Assessment: 62yF presenting with hypertensive emergency and hypertensive brainstem hemorrhage on the left, ischemic CVA in right parietal lobe. NEURO: * Neurosurgery and neurology following. * CTA neck moderate stenoses of the left subclavian and left common carotid artery. Complete occlusion of the left ICA. R ICA 65% stenosis. * CTA brain cerebral aneurysm measuring 6 mm x 6 mm along the right super clinoid portion of the right internal carotid artery. * Discussed with neurosurgery, continue medical management * Cardene gtt to keep SBP < 160 mmHg. Increase Lopressor to 25 mg every 8 hours. Add as needed IV labetalol and IV hydralazine * Repeat CTH stable * Avoid all anticoagulants/ antiplatelets. Aspirin once cleared by neurosurgery * q4h neuro checks * Monitor for signs of EtOH withdrawal; would like to avoid benzos in the acute setting unless absolutely necessary * Patient is high risk for carotid endarterectomy especially with distal right ICA aneurysm, recent brainstem hemorrhage. Left ICA occlusion is chronic CARDIO: * BP control as noted above * Hyperlipidemia, Lipitor 40 mg nightly * Echo pending RESP: * Counseled patient on importance of smoking cessation * Nicotine patch * Incentive spirometer F/E/N: * Regular diet, d/c stress ulcer prophylaxis * ICU lyte repletion protocol HEME: * SCDs/ ambulation ID: * No active issues ENDO: * A1c 5.5, FSBG wnl x 24 hours, discontinue PROPHY: * Stress ulcer prophylaxis no longer indicated * Bowel regimen * SCDs/ ambulation, pharmacologic prophylaxis contraindicated in the setting of intracranial hemorrhage OVERALL: This patient remains critically ill but stable. Counseling/ Coordination of Care: Level 3 Progress Note: Quality - Stroke Contraindication Not Initiating IV-Tpa: Contraindicated Onset of Symptoms Date: 06/05/18 Onset of Symptoms Time: 08:45 (Approximate as per patient) Symptom Onset Unknown: Yes Contraindication Antithromb by Day Two: Contraindicated Rehab Services Assessed: Physical medicine initial examination and planning for rehabilitation
[2018-06-07] MEDS: hydrALAZINE HCl Inj 20 MG/ML Vial IV.PUSH PRN ×3 (11:39→20:50)
--- NOTE | 2018-06-07 14:02 | P.PNNS ---
Subjective Interval history: Pt awake and alert. She denies any headache, nausea or vomiting this morning. No paresthesias or weakness in extremities. <Qamar Huitron - Last Filed: 06/07/18 13:51> Physical Exam Vital signs: Vital Signs 06/06/18 14:00 06/06/18 15:00 06/06/18 16:00 Temperature 98.3 F Pulse Rate 90 92 H 88 Respiratory Rate 17 21 19 Blood Pressure 152/70 H 158/60 H 152/72 H Pulse Oximetry 98 97 94 L 06/06/18 17:00 06/06/18 18:00 06/06/18 19:00 Temperature Pulse Rate 84 70 76 Respiratory Rate 19 16 16 Blood Pressure 151/72 H 132/66 147/72 H Pulse Oximetry 96 92 L 95 06/06/18 20:00 06/06/18 21:00 06/06/18 22:00 Temperature 98.6 F Pulse Rate 88 80 62 Respiratory Rate 21 20 16 Blood Pressure 126/55 L 139/66 140/68 Pulse Oximetry 95 98 95 06/06/18 23:00 06/07/18 00:00 06/07/18 01:00 Temperature 97.7 F Pulse Rate 70 61 54 L Respiratory Rate 18 15 15 Blood Pressure 145/70 H 147/75 H 112/52 L Pulse Oximetry 96 94 L 94 L 06/07/18 02:00 06/07/18 03:00 06/07/18 04:00 Temperature 98.6 F Pulse Rate 58 L 62 60 Respiratory Rate 13 18 15 Blood Pressure 122/55 L 145/66 H 143/87 H Pulse Oximetry 94 L 94 L 94 L 06/07/18 05:00 06/07/18 06:00 06/07/18 07:00 Temperature Pulse Rate 62 69 60 Respiratory Rate 19 22 15 Blood Pressure 128/58 L 160/81 H 130/68 Pulse Oximetry 94 L 97 98 06/07/18 08:00 06/07/18 08:27 06/07/18 09:00 Temperature 98 F Pulse Rate 66 72 Respiratory Rate 13 19 Blood Pressure 154/70 H 153/74 H Pulse Oximetry 99 99 100 06/07/18 10:00 06/07/18 11:00 06/07/18 12:00 Temperature 97.8 F Pulse Rate 60 80 81 Respiratory Rate 16 16 18 Blood Pressure 123/66 131/84 135/61 Pulse Oximetry 99 99 99 06/07/18 13:00 Temperature Pulse Rate 75 Respiratory Rate 17 Blood Pressure 161/68 H Pulse Oximetry 100 Intake & Output 06/06/18 06/07/18 06/07/18 18:59 06:59 18:59 Intake Total 2320 / 2320 490 / 490 200 / 200 Balance 2320 / 2320 490 / 490 200 / 200 Weight 60.2 kg Intake: IV 1600 / 1600 250 / 250 200 / 200 NS Inj 1,000 ML @ 84 mls/hr IV. 600 / 600 CONT .[id number] [facility] Rx#: [id number] Cardene Inj 25 MG In NS Inj 240 1000 / 1000 250 / 250 ML @ 5 MG/HR 50 mls/hr IV.CONT TITRATE PRN Rx#:[id number] KCl 20 mEq Premix Inj 20 meq In 200 / 200 100 ml @ 50 mls/hr IV.SIG Q2H PRN Rx#:[id number] Oral 720 / 720 240 / 240 Other: # Voids 4 2 Date of Last Bowel Movement 06/05/18 06/07/18 06/05/18 # Bowel Movements 0 1 - Constitutional no acute distress, average body habitus, cooperative - Routine HEENT Exam Head: Present: normocephalic, atraumatic Eye: Present: PERRL (Pupils 3mm bilaterally reactive bilaterally.). Absent: conjunctival icterus ENT: Present: oropharynx clear - Routine Neck Exam Present: trachea midline - Routine Respiratory Exam Present: CTA bilaterally. Absent: respiratory distress, rhonchi, wheezes - Routine Cardiovascular Exam Present: RRR, S1, S2. Absent: murmur - Routine Abdominal Exam Present: soft, normoactive bowel sounds. Absent: distended, firm - Routine Skin Exam Absent: cyanosis, erythema - Routine Neurological Exam Present: alert, moving all extremities, normal speech. Absent: sensory deficit , motor deficit, altered mental status - Routine Psychiatric Exam Present: normal affect, cooperative. Absent: agitated <Qamar Huitron - Last Filed: 06/07/18 13:51> Vital signs: Vital Signs 06/06/18 17:00 06/06/18 18:00 06/06/18 19:00 Temperature Pulse Rate 84 70 76 Respiratory Rate 19 16 16 Blood Pressure 151/72 H 132/66 147/72 H Pulse Oximetry 96 92 L 95 06/06/18 20:00 06/06/18 21:00 06/06/18 22:00 Temperature 98.6 F Pulse Rate 88 80 62 Respiratory Rate 21 20 16 Blood Pressure 126/55 L 139/66 140/68 Pulse Oximetry 95 98 95 06/06/18 23:00 06/07/18 00:00 06/07/18 01:00 Temperature 97.7 F Pulse Rate 70 61 54 L Respiratory Rate 18 15 15 Blood Pressure 145/70 H 147/75 H 112/52 L Pulse Oximetry 96 94 L 94 L 06/07/18 02:00 06/07/18 03:00 06/07/18 04:00 Temperature 98.6 F Pulse Rate 58 L 62 60 Respiratory Rate 13 18 15 Blood Pressure 122/55 L 145/66 H 143/87 H Pulse Oximetry 94 L 94 L 94 L 06/07/18 05:00 06/07/18 06:00 06/07/18 07:00 Temperature Pulse Rate 62 69 60 Respiratory Rate 19 22 15 Blood Pressure 128/58 L 160/81 H 130/68 Pulse Oximetry 94 L 97 98 06/07/18 08:00 06/07/18 08:27 06/07/18 09:00 Temperature 98 F Pulse Rate 66 72 Respiratory Rate 13 19 Blood Pressure 154/70 H 153/74 H Pulse Oximetry 99 99 100 06/07/18 10:00 06/07/18 11:00 06/07/18 12:00 Temperature 97.8 F Pulse Rate 60 80 81 Respiratory Rate 16 16 18 Blood Pressure 123/66 131/84 135/61 Pulse Oximetry 99 99 99 06/07/18 13:00 Temperature Pulse Rate 75 Respiratory Rate 17 Blood Pressure 161/68 H Pulse Oximetry 100 Intake & Output 06/06/18 06/07/18 06/07/18 18:59 06:59 18:59 Intake Total 2320 / 2320 490 / 490 300 / 300 Balance 2320 / 2320 490 / 490 300 / 300 Weight 60.2 kg Intake: IV 1600 / 1600 250 / 250 300 / 300 NS Inj 1,000 ML @ 84 mls/hr IV. 600 / 600 CONT .[id number] [facility] Rx#: [id number] Cardene Inj 25 MG In NS Inj 240 1000 / 1000 250 / 250 ML @ 5 MG/HR 50 mls/hr IV.CONT TITRATE PRN Rx#:[id number] KCl 20 mEq Premix Inj 20 meq In 300 / 300 100 ml @ 50 mls/hr IV.SIG Q2H PRN Rx#:[id number] Oral 720 / 720 240 / 240 Other: # Voids 4 2 Date of Last Bowel Movement 06/05/18 06/07/18 06/05/18 # Bowel Movements 0 1 <Lauri Pang - Last Filed: 06/07/18 17:00> Assessment and Plan - Assessment (1) Hypertensive emergency Code(s): I16.1 - Hypertensive emergency Status: Acute (2) Brainstem hemorrhage Code(s): I61.3 - Nontraumatic intracerebral hemorrhage in brain stem Status: Acute Qualifiers: Intracerebral hemorrhage etiology: nontraumatic (3) Alcohol abuse Code(s): F10.10 - Alcohol abuse, uncomplicated Status: Chronic - Plan 62-year-old lady with severe hypertension and associated left mid brain/ brainstem hemorrhage without hydrocephalus. The bleed is characteristic of a hypertensive hemorrhage. Reviewed results of CTA with Dr. 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 She also has complete occlusion of the left internal carotid artery and bulky calcified plaque in the right carotid bulb extending into the internal carotid origin with resultant approximately 65% stenosis. The aneurysm is an incidental finding but given her occlusion of the left internal carotid artery Dr. Pang recommends that she be treated at a tertiary care center when she is discharged. P: Continue with hypertension control. Continue to monitor for alcohol withdrawal symptoms. Continue with mechanical DVT prophylaxis as chemical DVT prophylaxis is contraindicated given the brainstem hemorrhage. PT and OT rehabilitation. <Qamar Huitron - Last Filed: 06/07/18 13:51> - Assessment (1) Brainstem hemorrhage Code(s): I61.3 - Nontraumatic intracerebral hemorrhage in brain stem Status: Acute Qualifiers: Intracerebral hemorrhage etiology: nontraumatic (2) Hypertensive emergency Code(s): I16.1 - Hypertensive emergency Status: Acute (3) Alcohol abuse Code(s): F10.10 - Alcohol abuse, uncomplicated Status: Chronic - Attending Attestation The exam, history, and the medical decision-making described in the above note were completed with the assistance of the mid-level provider. I reviewed and agree with the findings presented. I attest that I had a [id number] encounter with the patient on the same day, and personally performed and documented my assessment and findings in the medical record. Stable neurologic examination. She has a chronic left ICA occlusion although distally the MCA and REHAN reconstitute circulation. She also has high-grade right ICA stenosis with about 6 mm right supraclinoid ICA aneurysm. The cerebral aneurysm is an incidental finding unruptured and typically if less than 10mm conservative treatment is recommended but given that left carotid is occluded and there is high flow through the right carotid this may need to be treated. We do not perform endovascular coiling or aneurysm treatment at [facility] and therefore would need to be referred to [facility] on a semielective basis. Will have the insurance case manager coordinate an outpatient clinic appointment with Dr. Isaias Lopez cerebrovascular/endovascular surgeon at [facility] following her discharge. <Lauri Pang - Last Filed: 06/07/18 17:00> Progress Note: Quality - Stroke Contraindication Not Initiating IV-Tpa: Contraindicated Onset of Symptoms Date: 06/05/18 Onset of Symptoms Time: 08:45 (Approximate as per patient) Symptom Onset Unknown: Yes Contraindication Antithromb by Day Two: Contraindicated Rehab Services Assessed: Physical medicine initial examination and planning for rehabilitation <Qamar Huitron - Last Filed: 06/07/18 13:51>
--- NOTE | 2018-06-07 15:50 | P.PNVS ---
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 At this point in face of bleeding focus is on control of the systemic blood pressure and patient is not currently candidate for any further procedure due to the need for anticoagulation if any of the above pathologies needs to be addressed. Full consult dictated Thanks J Objective Vital Signs / I&O: Vital Signs 06/06/18 16:00 06/06/18 17:00 06/06/18 18:00 Temperature 98.3 F Pulse Rate 88 84 70 Respiratory Rate 19 19 16 Blood Pressure 152/72 H 151/72 H 132/66 Pulse Oximetry 94 L 96 92 L 06/06/18 19:00 06/06/18 20:00 06/06/18 21:00 Temperature 98.6 F Pulse Rate 76 88 80 Respiratory Rate 16 21 20 Blood Pressure 147/72 H 126/55 L 139/66 Pulse Oximetry 95 95 98 06/06/18 22:00 06/06/18 23:00 06/07/18 00:00 Temperature 97.7 F Pulse Rate 62 70 61 Respiratory Rate 16 18 15 Blood Pressure 140/68 145/70 H 147/75 H Pulse Oximetry 95 96 94 L 06/07/18 01:00 06/07/18 02:00 06/07/18 03:00 Temperature Pulse Rate 54 L 58 L 62 Respiratory Rate 15 13 18 Blood Pressure 112/52 L 122/55 L 145/66 H Pulse Oximetry 94 L 94 L 94 L 06/07/18 04:00 06/07/18 05:00 06/07/18 06:00 Temperature 98.6 F Pulse Rate 60 62 69 Respiratory Rate 15 19 22 Blood Pressure 143/87 H 128/58 L 160/81 H Pulse Oximetry 94 L 94 L 97 06/07/18 07:00 06/07/18 08:00 06/07/18 08:27 Temperature 98 F Pulse Rate 60 66 Respiratory Rate 15 13 Blood Pressure 130/68 154/70 H Pulse Oximetry 98 99 99 06/07/18 09:00 06/07/18 10:00 06/07/18 11:00 Temperature Pulse Rate 72 60 80 Respiratory Rate 19 16 16 Blood Pressure 153/74 H 123/66 131/84 Pulse Oximetry 100 99 99 06/07/18 12:00 06/07/18 13:00 Temperature 97.8 F Pulse Rate 81 75 Respiratory Rate 18 17 Blood Pressure 135/61 161/68 H Pulse Oximetry 99 100 Intake & Output 06/06/18 06/07/18 06/07/18 18:59 06:59 18:59 Intake Total 2320 / 2320 490 / 490 300 / 300 Balance 2320 / 2320 490 / 490 300 / 300 Weight 60.2 kg Intake: IV 1600 / 1600 250 / 250 300 / 300 NS Inj 1,000 ML @ 84 mls/hr IV. 600 / 600 CONT .[id number] [facility] Rx#: [id number] Cardene Inj 25 MG In NS Inj 240 1000 / 1000 250 / 250 ML @ 5 MG/HR 50 mls/hr IV.CONT TITRATE PRN Rx#:[id number] KCl 20 mEq Premix Inj 20 meq In 300 / 300 100 ml @ 50 mls/hr IV.SIG Q2H PRN Rx#:[id number] Oral 720 / 720 240 / 240 Other: # Voids 4 2 Date of Last Bowel Movement 06/05/18 06/07/18 06/05/18 # Bowel Movements 0 1 Laboratory Results - last 24 hr 06/06/18 06/07/18 06/07/18 03:24 02:46 02:46 WBC 7.0 RBC 4.63 Hgb 14.8 Hct 43.5 MCV 93.8 MCH 32.0 MCHC 34.1 RDW 15.2 Plt Count 287 MPV 7.2 Neut % (Auto) 70.1 H Lymph % (Auto) 20.3 [place] % (Auto) 6.9 Eos % (Auto) 1.7 Baso % (Auto) 1.0 Neut # (Auto) 4.9 Lymph # (Auto) 1.4 [place] # (Auto) 0.5 Eos # (Auto) 0.1 Baso # (Auto) 0.1 WBC Differential . Differential Comment Auto diff final Sodium 140 Potassium 3.0 L Chloride 107 Carbon Dioxide 22.0 Anion Gap 11 BUN 6 L Creatinine 0.54 Estimated GFR Greater than 89 Random Glucose 101 Hemoglobin A1c 5.5 Calcium 8.7 Magnesium 2.0 Impressions Head CTA 06/06/18 00:00 CONCLUSION: 1. 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 2. 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 Head MRI 06/06/18 00:00 CONCLUSION: 1. Stable focal area of intraparenchymal hemorrhage in the left midbrain. 2. 6 mm focal area of acute infarction involving the mid to posterior right parietal lobe. 3. Chronic bilateral maxillary sinus disease. Neck CTA 06/06/18 00:00 CONCLUSION: 1. Diffusely diseased proximal arch vessels with tandem moderate stenoses of the left subclavian artery and left common carotid artery. 2. Complete occlusion of the left internal carotid artery. 3. Bulky calcified plaque in the right carotid bulb extending to the internal carotid origin with resultant approximately 65% stenosis. 4. Focal mild to moderate stenosis of the very proximal left vertebral artery. Head CT 06/06/18 05:00 CONCLUSION: 1. Stable appearance of the brain with stable intraparenchymal hemorrhage at the level of the xiang. .
--- NOTE | 2018-06-07 17:25 | MB ---
cc: Ricardo Alas MD DATE: 06/07/2018 REASON FOR CONSULTATION: Right carotid stenosis, right internal carotid artery aneurysm, left hypertensive cerebral bleed. HISTORY OF PRESENT ILLNESS: A 62-year-old female reported to the [facility] for sweating and dry heaves. The patient apparently started having weakness and nausea suddenly if she was standing outside the office and on arrival was found to be massively hypertensive with systolic blood pressure of 260 mmHg. She was immediately started on blood pressors. She was on nicardipine drip and then she was placed in the ICU. In the process of workup, several pathologies were encountered in neurovascular system and hence the vascular consult. PAST MEDICAL HISTORY: Uncontrolled hypertension, noncompliance with medical therapy due to lack of insurance. PAST SURGICAL HISTORY: Tubal ligation, appendectomy. SOCIAL HISTORY: The patient smokes most of her adult life about a pack a day, and drinks about daily. PHYSICAL EXAMINATION: GENERAL: Reveals a 62-year-old female, no obvious trauma to the head. HEENT: Pupils are equal and reactive. Extraocular muscles appear to be intact. The patient has no lateralization at this time. No horizontal or vertical nystagmus. No lateralization. No field of vision loss. NECK: Supple. Unilateral carotid pulses on the right. CHEST: Bilateral breath sounds, decreased over both lung downey consistent with moderate COPD, pulmonary cachexia and loss of chest wall musculature. HEART: Regular rhythm. Blood pressure is now about 150/80 mmHg. ABDOMEN: Soft. No rebound, no guarding, no masses. EXTREMITIES: Within normal limits. Good proximal and distal pulses. No vascular deficit. NEUROLOGIC: She appears to be fully intact. No drift. Strength equal. Bilateral +5 normal deep tendon reflexes. No pathologic reflexes. IMPRESSION AND RECOMMENDATIONS: This patient has several abnormal findings. She has left hypertensive intracranial hemorrhage. She has left carotid artery occlusion, right carotid artery stenosis with a soft plaque, right hemispheric small ischemic stroke and about 6 mm right middle cerebral artery aneurysm or supraclinoid portion of the internal carotid artery, whichever you want to call it. Based on all the above, the following things in order: The patient cannot have anything done at this time as far as correction of the pathologies because of the intracranial hemorrhage. The main issue should be control of the blood pressure. About a month and a half from now, patient should have a repeat CAT scan. If there is no more blood and this area on the left side is healed, then the patient should have a workup to address the right carotid artery stenosis and right cerebral artery aneurysm. The best way to go about it is at the [place] setting where the patient should have coiling of the internal carotid artery aneurysm fold, but placement of a carotid stent on the way out. The other option is coiling of the internal carotid artery aneurysm and then elective carotid endarterectomy. Either way the patient is not a candidate for anything right now because she would have to be heparinized, anticoagulated for any of these procedures, and with intracranial hemorrhage this is clearly not going to happen. I will be happy to see the patient in followup in my office, but will recommend her to go to [place] [facility] for coiling of the aneurysm and further care in about a month and a half or so. Thank you very much for referral. Critical care time 36 minutes. MD HELENA Brandt/yvette/virgen , 03:41 PM , 03:51 PM
[2018-06-07] MEDS: Labetalol HCl Inj 100 MG/20 ML Vial IV.PUSH PRN ×2 (18:59→21:36)
--- NOTE | 2018-06-07 19:01 | ECHRPT ---
Indication: CVA / TIA CONCLUSIONS The left ventricular systolic function is normal with an estimated ejection fraction in the range of 55-60%. Moderate concentric left ventricular hypertrophy. Doppler parameters are consistent with impaired left ventricular relaxtion (grade 1 diastolic dysfun ction). The interatrial septum bowed from left to right, consistent with increased left atrial pressure. Trace mitral valve regurgitation. There is trace tricuspid valve regurgitation. BP: / HR: Rhythm: MEASUREMENTS (Male / Female) Normal Values Technical Quality:Fair 2D ECHO LV Diastolic Diameter PLAX 3.8 cm 4.2 - 5.9 / 3.9 - 5.3 cm LV Systolic Diameter PLAX 2.8 cm IVS Diastolic Thickness 1.3 cm 0.6 - 1.0 / 0.6 - 0.9 cm LVPW Diastolic Thickness 1.3 cm 0.6 - 1.0 / 0.6 - 0.9 cm LV Relative Wall Thickness 0.7 RV Internal Dim ED PLAX 2.3 cm LVOT Diameter 2.0 cm Aortic Root Diameter 2.9 cm LA Systolic Diameter LX 2.7 cm 3.0 - 4.0 / 2.7 - 3.8 cm M-MODE AV Cusp Separation MM 1.8 cm DOPPLER AV Peak Velocity 162.0 cm/s AV Peak Gradient 10.5 mmHg LVOT Peak Velocity 120.0 cm/s LVOT Peak Gradient 5.8 mmHg AV Area Cont Eq pk 2.3 cm Mitral E Point Velocity 81.4 cm/s Mitral A Point Velocity 126.0 cm/s Mitral E to A Ratio 0.6 LV E' Lateral Velocity 4.3 cm/s Mitral E to LV E' Lateral Ratio 19.0 LV E' Septal Velocity 5.9 cm/s Mitral E to LV E' Septal Ratio 13.9 TR Peak Velocity 132.0 cm/s TR Peak Gradient 7.0 mmHg Right Atrial Pressure 5.0 mmHg Pulmonary Artery Systolic Pressu 12.0 mmHg Right Ventricular Systolic Press 12.0 mmHg PV Peak Velocity 110.0 cm/s PV Peak Gradient 4.8 mmHg FINDINGS LEFT VENTRICLE Normal left ventricular size. Moderate concentric left ventricular hypertrophy. The left ventricular systolic function is normal with an estimated ejection fraction in the range of 55-60%. Doppler parameters are consistent with impaired left ventricular relaxtion (grade 1 diastolic dysfun ction). RIGHT VENTRICLE Normal right ventricular size and systolic function. LEFT ATRIUM The left atrial size is upper limits of normal. RIGHT ATRIUM The right atrial size is normal. ATRIAL SEPTUM The interatrial septum bowed from left to right, consistent with increased left atrial pressure. AORTA The aortic root and proximal ascending aorta are normal in size on limited imaging. MITRAL VALVE Structurally normal mitral valve. Trace mitral valve regurgitation. No mitral valve stenosis. AORTIC VALVE Trileaflet aortic valve. No aortic valve stenosis or regurgitation. TRICUSPID VALVE Structurally normal tricuspid valve. There is trace tricuspid valve regurgitation. No tricuspid valve stenosis. PULMONARY VALVE No pulmonary valve regurgitation or stenosis. VESSELS The inferior vena cava is normal in size. PERICARDIUM No pericardial effusion. Jorge Luis Rivera DO (Electronically Signed) Final Date:07 June 2018 19:00
[2018-06-08] MEDS: Metoprolol Tartrate 25 MG Tablet PO SCH ×3 (02:15→17:23)
[2018-06-08] MEDS: Chlorhexidine Gluconate 2% 1 Pack (2 Cloths) TOPICAL SCH (03:36)
[2018-06-08] MEDS: Labetalol HCl Inj 100 MG/20 ML Vial IV.PUSH PRN (04:20)
[2018-06-08 04:29] LABS: Baso # (Auto) 0.1 th/mm3 (0.0-0.2); Baso % (Auto) 1.1 % (0.0-2.0); Eos # (Auto) 0.2 th/mm3 (0.0-0.4); Eos % (Auto) 2.9 % (0.0-4.0); Hematocrit 43.9 % (35.0-46.0); Lymph # (Auto) 1.8 th/mm3 (1.0-4.8); Lymph % (Auto) 27.8 % (9.0-44.0); Mean Corpuscular HGB Conc 34.1 % (32.0-36.0); Mean Corpuscular Hemoglobin 32.2 pg (27.0-34.0); Mean Corpuscular Volume 94.3 fL (80.0-100.0); Mean Platelet Volume 7.4 fL (7.0-11.0); Mono # (Auto) 0.7 th/mm3 (0.0-0.9); Mono % (Auto) 10.6 % (0.0-8.0); Neut # (Auto) 3.7 th/mm3 (1.8-7.7); Neut % (Auto) 57.6 % (16.0-70.0); Platelet Count 298 th/mm3 (150-450); Red Blood Count 4.65 mil/mm3 (4.00-5.30); Red Cell Distribution Width 15.9 % (11.6-17.2); White Blood Count 6.4 th/mm3 (4.0-11.0)
[2018-06-08 04:53] LABS: Calcium 8.9 mg/dL (8.5-10.1); Magnesium 2.1 mg/dL (1.5-2.5); Potassium 3.5 meq/L (3.5-5.1)
[2018-06-08] MEDS: Potassium Chlor 20 mEq Premix 20 MEQ/100 ML PIGGYBACK IV.SIG PRN (05:42)
[2018-06-08] MEDS: hydrALAZINE HCl Inj 20 MG/ML Vial IV.PUSH PRN (06:49)
[2018-06-08] MEDS: Famotidine 20 MG Tablet PO SCH ×2 (08:18→20:28)
[2018-06-08] MEDS: Senna/Docusate Sodium 8.6/50 MG Tablet PO SCH (08:18)
[2018-06-08] MEDS: Famotidine PF Inj 20 MG/2 ML Vial IV.PUSH SCH ×2 (08:19→21:25)
[2018-06-08] MEDS: amLODIPine 10 MG Tablet PO SCH (09:04)
--- NOTE | 2018-06-08 09:24 | P.PNNEU ---
Subjective Subjective Comments: No cp, no dyspnea, no castro, no focal weakness, no vision loss Active Medications: Active Medications Amlodipine Besylate (Norvasc) 10 mg PO DAILY [facility] Last Admin: 06/08/18 09:04 Dose: 10 mg Atorvastatin Calcium (Lipitor) 40 mg PO HS [facility] Last Admin: 06/07/18 20:51 Dose: 40 mg Bisacodyl (Dulcolax Supp) 10 mg RECTAL DAILY PRN PRN Reason: SEVERE CONSITIPATION Chlorhexidine Gluconate (Chlorhexidine 2% Cloth) 3 pack TOPICAL DAILY@0400 [facility] Stop: 06/11/18 03:59 Last Admin: 06/08/18 03:36 Dose: 3 pack Chlorhexidine Gluconate (Chlorhexidine 2% Cloth) 3 pack TOPICAL DAILY@0400 PRN PRN Reason: Extra cloth needed Stop: 06/11/18 03:59 Clonidine HCl (Catapres) 0.1 mg PO Q6H PRN PRN Reason: SYS BP GREATER THAN 160 [facility] Last Admin: 06/08/18 09:04 Dose: 0.1 mg Enalaprilat (Vasotec Inj) 1.25 mg IV.PUSH Q6H PRN PRN Reason: SBP>160, DBP>90 Famotidine (Pepcid) 20 mg PO BID [facility] Last Admin: 06/08/18 08:18 Dose: 20 mg Famotidine (Pepcid Pf Inj) 20 mg IV.PUSH Q12HR [facility] Last Admin: 06/08/18 08:19 Dose: Not Given Flumazenil (Romazecon Inj) 0.2 mg IV.PUSH Q1M PRN PRN Reason: OVERSEDATION Haloperidol Lactate (Haldol Inj) 1 mg IV.PUSH Q15M PRN PRN Reason: for severe agitation Last Admin: 06/07/18 00:08 Dose: 1 mg Metoclopramide HCl (Reglan Inj) 10 mg IV.PUSH Q8H PRN; Protocol PRN Reason: NAUSEA OR VOMITING Metoprolol Tartrate (Lopressor) 25 mg PO Q8H [facility] Last Admin: 06/08/18 08:18 Dose: 25 mg Nicotine (Habitrol 14 Mg Patch.24 Hr) 1 patch T-DERMAL DAILY [facility] Last Admin: 06/08/18 08:18 Dose: 1 patch Patch Removal (Remove Old Patch) 1 each T-DERMAL DAILY [facility] Last Admin: 06/08/18 08:19 Dose: 1 each Sennosides (Senokot) 17.2 mg PO Q12H PRN PRN Reason: Moderate Constipation Sodium Chloride (Ns Flush) 2 ml IV.FLUSH BID [facility] Last Admin: 06/08/18 08:19 Dose: 2 ml Sodium Chloride (Ns Flush) 2 ml IV.FLUSH PRN PRN PRN Reason: FLUSH AFTER USING IV ACCESS Allergies/Adverse Reactions: Allergies Allergy/AdvReac Type Severity Reaction Status Date / Time No Known Allergies Allergy Unverified 06/05/18 16:24 Review of Systems All other systems reviewed negative except as stated in HPI Physical Exam Vital signs: Vital Signs 06/07/18 10:00 06/07/18 11:00 06/07/18 12:00 Temperature 97.8 F Pulse Rate 60 80 81 Respiratory Rate 16 16 18 Blood Pressure 123/66 131/84 135/61 Pulse Oximetry 99 99 99 06/07/18 13:00 06/07/18 14:00 06/07/18 15:00 Temperature Pulse Rate 75 87 86 Respiratory Rate 17 20 21 Blood Pressure 161/68 H 155/72 H 178/76 H Pulse Oximetry 100 98 99 06/07/18 16:00 06/07/18 17:00 06/07/18 18:00 Temperature 98.1 F Pulse Rate 84 97 H 88 Respiratory Rate 17 21 20 Blood Pressure 130/70 175/78 H 179/77 H Pulse Oximetry 98 95 98 06/07/18 19:00 06/07/18 20:00 06/07/18 21:00 Temperature 98.3 F Pulse Rate 80 80 75 Respiratory Rate 22 23 20 Blood Pressure 153/69 H 170/77 H 175/87 H Pulse Oximetry 99 100 99 06/07/18 21:10 06/07/18 22:00 06/07/18 23:00 Temperature Pulse Rate 74 66 Respiratory Rate 21 15 Blood Pressure 168/77 H 103/51 L Pulse Oximetry 95 99 98 06/08/18 00:00 06/08/18 01:00 06/08/18 02:00 Temperature 98.4 F Pulse Rate 80 66 66 Respiratory Rate 24 20 14 Blood Pressure 145/63 H 116/60 138/61 Pulse Oximetry 99 99 98 06/08/18 03:00 06/08/18 04:00 06/08/18 05:00 Temperature 98 F Pulse Rate 74 78 62 Respiratory Rate 22 17 23 Blood Pressure 174/79 H 184/84 H 161/73 H Pulse Oximetry 98 98 98 06/08/18 06:00 06/08/18 08:00 06/08/18 08:46 Temperature 98.2 F Pulse Rate 78 90 Respiratory Rate 23 22 Blood Pressure 192/88 H 160/74 H Pulse Oximetry 98 100 95 Intake & Output 06/07/18 06/08/18 06/08/18 18:59 06:59 18:59 Intake Total 1120 / 1120 Balance 1120 / 1120 Weight 58.1 kg Intake: IV 400 / 400 KCl 20 mEq Premix Inj 20 meq In 400 / 400 100 ml @ 50 mls/hr IV.SIG Q2H PRN Rx#:[id number] Oral 720 / 720 Other: # Voids 6 2 Date of Last Bowel Movement 06/07/18 06/07/18 06/07/18 # Bowel Movements 1 Narrative: GENERAL: in NAD, sitting up in chair looks comfortable SKIN: Warm and dry. HEAD: Atraumatic. Normocephalic. EYES: Pupils equal and round. No scleral icterus. ENT: No nasal bleeding or discharge. Mucous membranes pink and moist. NECK: Trachea midline. No JVD. CARDIOVASCULAR: Regular rate and rhythm. RESPIRATORY: No accessory muscle use. GASTROINTESTINAL: Abdomen soft, non-tender, nondistended. MUSCULOSKELETAL: Extremities without clubbing, cyanosis, or edema. No obvious deformities. NEUROLOGICAL: Awake and alert. No aphasia, oriented x3 fluent articulate, No facial asymmetry, OU 3-2mm, eomi, VFF, No drift, Motor grossly within normal limits. Five out of 5 muscle strength in the arms and legs. PSYCHIATRIC: Appropriate mood and affect; insight and judgment normal. - Constitutional no acute distress - Routine HEENT Exam Head: Present: normocephalic Eye: Present: EOMI Objective Laboratory Results - last 24 hr 06/07/18 06/08/18 06/08/18 21:48 02:44 02:44 WBC 6.4 RBC 4.65 Hgb 15.0 Hct 43.9 MCV 94.3 MCH 32.2 MCHC 34.1 RDW 15.9 Plt Count 298 MPV 7.4 Neut % (Auto) 57.6 Lymph % (Auto) 27.8 Jefferson % (Auto) 10.6 H Eos % (Auto) 2.9 Baso % (Auto) 1.1 Neut # (Auto) 3.7 Lymph # (Auto) 1.8 Jefferson # (Auto) 0.7 Eos # (Auto) 0.2 Baso # (Auto) 0.1 WBC Differential . Differential Comment Auto diff final Sodium 138 Potassium 3.6 3.5 Chloride 103 Carbon Dioxide 22.0 Anion Gap 13 BUN 10 Creatinine 0.70 Estimated GFR 84 L Random Glucose 100 Calcium 8.9 Magnesium 2.1 Review/Management - Diagnosis (1) Brainstem hemorrhage Code(s): I61.3 - Nontraumatic intracerebral hemorrhage in brain stem Status: Acute Current Visit: Yes (2) Acute right MCA stroke Code(s): I63.511 - Cerebral infarction due to unspecified occlusion or stenosis of right middle cerebral artery Status: Acute Current Visit: Yes (3) Tobacco use Code(s): Z72.0 - Tobacco use Status: Acute Current Visit: Yes (4) Left carotid artery occlusion Code(s): I65.22 - Occlusion and stenosis of left carotid artery Status: Acute Current Visit: Yes (5) Hypertensive emergency Code(s): I16.1 - Hypertensive emergency Status: Acute Current Visit: Yes (6) Intracranial vascular stenosis Code(s): I67.9 - Cerebrovascular disease, unspecified Status: Acute Current Visit: Yes - Review/Management Plan: Patient with a left midbrain hemorrhage in addition to a small right subcortical infarct Mechanism for both insults likely related to chronic small vessel disease secondary to chronic untreated hypertension, dyslipidemia, chronic tobacco use She is a history of known left internal carotid artery occlusion Neurologically doing quite well Recommendation Neuro stable Vascular surgery will see her regarding the right carotid although certainly high risk of contralateral occlusion and aneurysm. This may need to be looked at in the future after the bleed heals She will need to be on aspirin once the hemorrhage resolves and is cleared by neurosurgery Avoid hypotension as she is risk for ischemia with left carotid occlusion Initiate statin Tobacco cessation Okay for fifth floor telemetry Blood pressure control discharge planning Reviewed radiological studies with the patient Behavioral modification and risk factor reduction. Weight loss, blood pressure control, blood sugar control, lipid control. Exercise (1) Brainstem hemorrhage Qualifiers: Intracerebral hemorrhage etiology: nontraumatic
--- NOTE | 2018-06-08 12:52 | P.PNVS ---
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 At this point in face of bleeding focus is on control of the systemic blood pressure and patient is not currently candidate for any further procedure due to the need for anticoagulation if any of the above pathologies needs to be addressed. Full consult dictated Thanks Jeanne 06/08/2018 This patient has several abnormal findings. She has left hypertensive intracranial hemorrhage. She has left carotid artery occlusion, right carotid artery stenosis with a soft plaque, right hemispheric small ischemic stroke and about 6 mm right middle cerebral artery aneurysm or supraclinoid portion of the internal carotid artery, whichever you want to call it. Based on all the above, the following things in order: The patient cannot have anything done at this time as far as correction of the pathologies because of the intracranial hemorrhage. The main issue should be control of the blood pressure. About a month and a half from now, patient should have a repeat CAT scan. If there is no more blood and this area on the left sided hemorrhagic stroke is healed, then the patient should have a workup to address the right carotid artery stenosis and right cerebral artery aneurysm. The best way to go about it is at the [place] setting where the patient should have coiling of the internal carotid artery aneurysm fold, but placement of a carotid stent on the way out. The other option is coiling of the internal carotid artery aneurysm and then elective carotid endarterectomy. Either way the patient is not a candidate for anything right now because she would have to be heparinized, anticoagulated for any of these procedures, and with intracranial hemorrhage this is clearly not going to happen. I will be happy to see the patient in followup in my office. Fully agree with Dr. Mckeon's assessment Objective Vital Signs / I&O: Vital Signs 06/07/18 13:00 06/07/18 14:00 06/07/18 15:00 Temperature Pulse Rate 75 87 86 Respiratory Rate 17 20 21 Blood Pressure 161/68 H 155/72 H 178/76 H Pulse Oximetry 100 98 99 06/07/18 16:00 06/07/18 17:00 06/07/18 18:00 Temperature 98.1 F Pulse Rate 84 97 H 88 Respiratory Rate 17 21 20 Blood Pressure 130/70 175/78 H 179/77 H Pulse Oximetry 98 95 98 06/07/18 19:00 06/07/18 20:00 06/07/18 21:00 Temperature 98.3 F Pulse Rate 80 80 75 Respiratory Rate 22 23 20 Blood Pressure 153/69 H 170/77 H 175/87 H Pulse Oximetry 99 100 99 06/07/18 21:10 06/07/18 22:00 06/07/18 23:00 Temperature Pulse Rate 74 66 Respiratory Rate 21 15 Blood Pressure 168/77 H 103/51 L Pulse Oximetry 95 99 98 06/08/18 00:00 06/08/18 01:00 06/08/18 02:00 Temperature 98.4 F Pulse Rate 80 66 66 Respiratory Rate 24 20 14 Blood Pressure 145/63 H 116/60 138/61 Pulse Oximetry 99 99 98 06/08/18 03:00 06/08/18 04:00 06/08/18 05:00 Temperature 98 F Pulse Rate 74 78 62 Respiratory Rate 22 17 23 Blood Pressure 174/79 H 184/84 H 161/73 H Pulse Oximetry 98 98 98 06/08/18 06:00 06/08/18 08:00 06/08/18 08:46 Temperature 98.2 F Pulse Rate 78 90 Respiratory Rate 23 22 Blood Pressure 192/88 H 160/74 H Pulse Oximetry 98 100 95 06/08/18 10:00 Temperature Pulse Rate 76 Respiratory Rate Blood Pressure Pulse Oximetry Intake & Output 06/07/18 06/08/18 06/08/18 18:59 06:59 18:59 Intake Total 1120 / 1120 100 / 100 Balance 1120 / 1120 100 / 100 Weight 58.1 kg Intake: IV 400 / 400 100 / 100 KCl 20 mEq Premix Inj 20 meq In 400 / 400 100 / 100 100 ml @ 50 mls/hr IV.SIG Q2H PRN Rx#:[id number] Oral 720 / 720 Other: # Voids 6 2 Date of Last Bowel Movement 06/07/18 06/07/18 06/07/18 # Bowel Movements 1 Laboratory Results - last 24 hr 06/07/18 06/08/18 06/08/18 21:48 02:44 02:44 WBC 6.4 RBC 4.65 Hgb 15.0 Hct 43.9 MCV 94.3 MCH 32.2 MCHC 34.1 RDW 15.9 Plt Count 298 MPV 7.4 Neut % (Auto) 57.6 Lymph % (Auto) 27.8 Coffee % (Auto) 10.6 H Eos % (Auto) 2.9 Baso % (Auto) 1.1 Neut # (Auto) 3.7 Lymph # (Auto) 1.8 Coffee # (Auto) 0.7 Eos # (Auto) 0.2 Baso # (Auto) 0.1 WBC Differential . Differential Comment Auto diff final Sodium 138 Potassium 3.6 3.5 Chloride 103 Carbon Dioxide 22.0 Anion Gap 13 BUN 10 Creatinine 0.70 Estimated GFR 84 L Random Glucose 100 Calcium 8.9 Magnesium 2.1 Impressions Head CTA 06/06/18 00:00 CONCLUSION: 1. 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 2. 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 Neck CTA 06/06/18 00:00 CONCLUSION: 1. Diffusely diseased proximal arch vessels with tandem moderate stenoses of the left subclavian artery and left common carotid artery. 2. Complete occlusion of the left internal carotid artery. 3. Bulky calcified plaque in the right carotid bulb extending to the internal carotid origin with resultant approximately 65% stenosis. 4. Focal mild to moderate stenosis of the very proximal left vertebral artery. Assessment and Plan - Attending Attestation Critical care time 32 minutes
--- NOTE | 2018-06-08 13:45 | P.PNIM ---
Subjective Interval history: Significantly elevated blood pressure this morning, worsened with activity. Blood pressure medications are adjusted. Better control through this afternoon. Patient's physical abilities are improving. Physical Exam Vital signs: Vital Signs 06/07/18 14:00 06/07/18 15:00 06/07/18 16:00 Temperature 98.1 F Pulse Rate 87 86 84 Respiratory Rate 20 21 17 Blood Pressure 155/72 H 178/76 H 130/70 Pulse Oximetry 98 99 98 06/07/18 17:00 06/07/18 18:00 06/07/18 19:00 Temperature Pulse Rate 97 H 88 80 Respiratory Rate 21 20 22 Blood Pressure 175/78 H 179/77 H 153/69 H Pulse Oximetry 95 98 99 06/07/18 20:00 06/07/18 21:00 06/07/18 21:10 Temperature 98.3 F Pulse Rate 80 75 Respiratory Rate 23 20 Blood Pressure 170/77 H 175/87 H Pulse Oximetry 100 99 95 06/07/18 22:00 06/07/18 23:00 06/08/18 00:00 Temperature 98.4 F Pulse Rate 74 66 80 Respiratory Rate 21 15 24 Blood Pressure 168/77 H 103/51 L 145/63 H Pulse Oximetry 99 98 99 06/08/18 01:00 06/08/18 02:00 06/08/18 03:00 Temperature Pulse Rate 66 66 74 Respiratory Rate 20 14 22 Blood Pressure 116/60 138/61 174/79 H Pulse Oximetry 99 98 98 06/08/18 04:00 06/08/18 05:00 06/08/18 06:00 Temperature 98 F Pulse Rate 78 62 78 Respiratory Rate 17 23 23 Blood Pressure 184/84 H 161/73 H 192/88 H Pulse Oximetry 98 98 98 06/08/18 08:00 06/08/18 08:46 06/08/18 10:00 Temperature 98.2 F Pulse Rate 90 76 Respiratory Rate 22 Blood Pressure 160/74 H Pulse Oximetry 100 95 06/08/18 12:00 Temperature 98.0 F Pulse Rate 82 Respiratory Rate 16 Blood Pressure 133/78 Pulse Oximetry 100 Intake & Output 06/07/18 06/08/18 06/08/18 18:59 06:59 18:59 Intake Total 1120 / 1120 100 / 100 Balance 1120 / 1120 100 / 100 Weight 58.1 kg Intake: IV 400 / 400 100 / 100 KCl 20 mEq Premix Inj 20 meq In 400 / 400 100 / 100 100 ml @ 50 mls/hr IV.SIG Q2H PRN Rx#:[id number] Oral 720 / 720 Other: # Voids 6 2 Date of Last Bowel Movement 06/07/18 06/07/18 06/07/18 # Bowel Movements 1 Narrative: GENERAL: NAD, A&Ox3 HEAD: Normocephalic. NECK: Supple, trachea midline. No lymphadenopathy. EYES: No scleral icterus. No injection or drainage. CARDIOVASCULAR: Regular rate and rhythm without murmurs, gallops, or rubs. RESPIRATORY: Breath sounds equal bilaterally. No accessory muscle use. GASTROINTESTINAL: Abdomen soft, non-tender, nondistended. MUSCULOSKELETAL: No cyanosis, or edema. SKIN: Warm and dry. NEURO: No focal neurological deficits. Results - Labs CBC & Chem 7: 06/08/18 02:44 06/08/18 02:44 Laboratory Results - last 24 hr 06/07/18 06/08/18 06/08/18 21:48 02:44 02:44 WBC 6.4 RBC 4.65 Hgb 15.0 Hct 43.9 MCV 94.3 MCH 32.2 MCHC 34.1 RDW 15.9 Plt Count 298 MPV 7.4 Neut % (Auto) 57.6 Lymph % (Auto) 27.8 Jefferson % (Auto) 10.6 H Eos % (Auto) 2.9 Baso % (Auto) 1.1 Neut # (Auto) 3.7 Lymph # (Auto) 1.8 [place] # (Auto) 0.7 Eos # (Auto) 0.2 Baso # (Auto) 0.1 WBC Differential . Differential Comment Auto diff final Sodium 138 Potassium 3.6 3.5 Chloride 103 Carbon Dioxide 22.0 Anion Gap 13 BUN 10 Creatinine 0.70 Estimated GFR 84 L Random Glucose 100 Calcium 8.9 Magnesium 2.1 Assessment and Plan - Plan 62yo presenting with hypertensive emergency and hypertensive brainstem hemorrhage on the left, ischemic CVA in right parietal lobe Right parietal lobe ischemic CVA Hypertensive emergency Hypertensive brainstem hemorrhage Carotid artery stenosis Neurosurgery following Not a candidate currently for her carotid artery stenosis Transitioning to p.o. blood pressure management Cardene drip discontinued Continue amlodipine Continue Lopressor Continue as needed clonidine Hyperlipidemia Continue present treatment Follow as an outpatient Nicotine dependence Patient counseled to quit Continue NicoDerm patch DVT prophylaxis SCDs Chemical Prophylaxis contraindicated by brain stem hemorrhage Ambulation Discharge Planning Awaiting more stability in BP and Improved ambulation Progress Note: Quality - Stroke Contraindication Not Initiating IV-Tpa: Contraindicated Onset of Symptoms Date: 06/05/18 Onset of Symptoms Time: 08:45 (Approximate as per patient) Symptom Onset Unknown: Yes Contraindication Antithromb by Day Two: Contraindicated Rehab Services Assessed: Physical medicine initial examination and planning for rehabilitation
--- NOTE | 2018-06-08 14:12 | P.PNNS ---
Subjective Interval history: Pt is awake and alert. Sitting up in chair. Denies any headaches, nausea, or vomiting. No paresthesias in her extremities. She is hypertensive this am and RN is giving her meds. <Qamar Hiutron - Last Filed: 06/08/18 14:05> Physical Exam Vital signs: Vital Signs 06/07/18 15:00 06/07/18 16:00 06/07/18 17:00 Temperature 98.1 F Pulse Rate 86 84 97 H Respiratory Rate 21 17 21 Blood Pressure 178/76 H 130/70 175/78 H Pulse Oximetry 99 98 95 06/07/18 18:00 06/07/18 19:00 06/07/18 20:00 Temperature 98.3 F Pulse Rate 88 80 80 Respiratory Rate 20 22 23 Blood Pressure 179/77 H 153/69 H 170/77 H Pulse Oximetry 98 99 100 06/07/18 21:00 06/07/18 21:10 06/07/18 22:00 Temperature Pulse Rate 75 74 Respiratory Rate 20 21 Blood Pressure 175/87 H 168/77 H Pulse Oximetry 99 95 99 06/07/18 23:00 06/08/18 00:00 06/08/18 01:00 Temperature 98.4 F Pulse Rate 66 80 66 Respiratory Rate 15 24 20 Blood Pressure 103/51 L 145/63 H 116/60 Pulse Oximetry 98 99 99 06/08/18 02:00 06/08/18 03:00 06/08/18 04:00 Temperature 98 F Pulse Rate 66 74 78 Respiratory Rate 14 22 17 Blood Pressure 138/61 174/79 H 184/84 H Pulse Oximetry 98 98 98 06/08/18 05:00 06/08/18 06:00 06/08/18 08:00 Temperature 98.2 F Pulse Rate 62 78 90 Respiratory Rate 23 23 22 Blood Pressure 161/73 H 192/88 H 160/74 H Pulse Oximetry 98 98 100 06/08/18 08:46 06/08/18 10:00 06/08/18 12:00 Temperature 98.0 F Pulse Rate 76 82 Respiratory Rate 16 Blood Pressure 133/78 Pulse Oximetry 95 100 Intake & Output 06/07/18 06/08/18 06/08/18 18:59 06:59 18:59 Intake Total 1120 / 1120 100 / 100 Balance 1120 / 1120 100 / 100 Weight 58.1 kg Intake: IV 400 / 400 100 / 100 KCl 20 mEq Premix Inj 20 meq In 400 / 400 100 / 100 100 ml @ 50 mls/hr IV.SIG Q2H PRN Rx#:[id number] Oral 720 / 720 Other: # Voids 6 2 Date of Last Bowel Movement 06/07/18 06/07/18 06/07/18 # Bowel Movements 1 - Constitutional no acute distress, cooperative - Routine HEENT Exam Head: Present: normocephalic, atraumatic Eye: Present: PERRL (Pupils 3mm bilaterally reactive bilaterally.). Absent: conjunctival icterus ENT: Present: oropharynx clear - Routine Neck Exam Present: trachea midline - Routine Respiratory Exam Present: CTA bilaterally. Absent: respiratory distress, rhonchi, wheezes - Routine Cardiovascular Exam Present: RRR, S1, S2. Absent: murmur - Routine Abdominal Exam Present: soft, normoactive bowel sounds. Absent: distended - Routine Skin Exam Absent: cyanosis, erythema - Routine Neurological Exam Present: alert, oriented X3, moving all extremities, normal speech. Absent: sensory deficit, motor deficit, altered mental status - Routine Psychiatric Exam Present: normal affect, cooperative. Absent: anxious, agitated <Qamar Huitron - Last Filed: 06/08/18 14:05> Vital signs: Vital Signs 06/07/18 16:00 06/07/18 17:00 06/07/18 18:00 Temperature 98.1 F Pulse Rate 84 97 H 88 Respiratory Rate 17 21 20 Blood Pressure 130/70 175/78 H 179/77 H Pulse Oximetry 98 95 98 06/07/18 19:00 06/07/18 20:00 06/07/18 21:00 Temperature 98.3 F Pulse Rate 80 80 75 Respiratory Rate 22 23 20 Blood Pressure 153/69 H 170/77 H 175/87 H Pulse Oximetry 99 100 99 06/07/18 21:10 06/07/18 22:00 06/07/18 23:00 Temperature Pulse Rate 74 66 Respiratory Rate 21 15 Blood Pressure 168/77 H 103/51 L Pulse Oximetry 95 99 98 06/08/18 00:00 06/08/18 01:00 06/08/18 02:00 Temperature 98.4 F Pulse Rate 80 66 66 Respiratory Rate 24 20 14 Blood Pressure 145/63 H 116/60 138/61 Pulse Oximetry 99 99 98 06/08/18 03:00 06/08/18 04:00 06/08/18 05:00 Temperature 98 F Pulse Rate 74 78 62 Respiratory Rate 22 17 23 Blood Pressure 174/79 H 184/84 H 161/73 H Pulse Oximetry 98 98 98 06/08/18 06:00 06/08/18 08:00 06/08/18 08:46 Temperature 98.2 F Pulse Rate 78 90 Respiratory Rate 23 22 Blood Pressure 192/88 H 160/74 H Pulse Oximetry 98 100 95 06/08/18 10:00 06/08/18 12:00 Temperature 98.0 F Pulse Rate 76 82 Respiratory Rate 16 Blood Pressure 133/78 Pulse Oximetry 100 Intake & Output 06/07/18 06/08/18 06/08/18 18:59 06:59 18:59 Intake Total 1120 / 1120 100 / 100 Balance 1120 / 1120 100 / 100 Weight 58.1 kg Intake: IV 400 / 400 100 / 100 KCl 20 mEq Premix Inj 20 meq In 400 / 400 100 / 100 100 ml @ 50 mls/hr IV.SIG Q2H PRN Rx#:[id number] Oral 720 / 720 Other: # Voids 6 2 Date of Last Bowel Movement 06/07/18 06/07/18 06/07/18 # Bowel Movements 1 <Lauri Pang - Last Filed: 06/08/18 15:56> Assessment and Plan - Assessment (1) Hypertensive emergency Code(s): I16.1 - Hypertensive emergency Status: Acute (2) Brainstem hemorrhage Code(s): I61.3 - Nontraumatic intracerebral hemorrhage in brain stem Status: Acute Qualifiers: Intracerebral hemorrhage etiology: nontraumatic (3) Alcohol abuse Code(s): F10.10 - Alcohol abuse, uncomplicated Status: Chronic - Plan 62-year-old lady with severe hypertension and associated left mid brain/ brainstem hemorrhage without hydrocephalus. The bleed is characteristic of a hypertensive hemorrhage. Reviewed results of CTA with Dr. 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 She also has complete occlusion of the left internal carotid artery and bulky calcified plaque in the right carotid bulb extending into the internal carotid origin with resultant approximately 65% stenosis. The aneurysm is an incidental finding but given her occlusion of the left internal carotid artery Dr. Pang recommends that she be treated at a tertiary care center when she is discharged. See my previous note for his further explanation of findings. P: Continue with hypertension control. Continue to monitor for alcohol withdrawal symptoms. Continue with mechanical DVT prophylaxis as chemical DVT prophylaxis is contraindicated given the brainstem hemorrhage. PT and OT rehabilitation[facility] <Qamar Huitron - Last Filed: 06/08/18 14:05> - Assessment (1) Brainstem hemorrhage Code(s): I61.3 - Nontraumatic intracerebral hemorrhage in brain stem Status: Acute Qualifiers: Intracerebral hemorrhage etiology: nontraumatic (2) Hypertensive emergency Code(s): I16.1 - Hypertensive emergency Status: Acute (3) Alcohol abuse Code(s): F10.10 - Alcohol abuse, uncomplicated Status: Chronic - Attending Attestation The exam, history, and the medical decision-making described in the above note were completed with the assistance of the mid-level provider. I reviewed and agree with the findings presented. I attest that I had a [id number] encounter with the patient on the same day, and personally performed and documented my assessment and findings in the medical record. <Lauri Pang - Last Filed: 06/08/18 15:56> Progress Note: Quality - Stroke Contraindication Not Initiating IV-Tpa: Contraindicated Onset of Symptoms Date: 06/05/18 Onset of Symptoms Time: 08:45 (Approximate as per patient) Symptom Onset Unknown: Yes Contraindication Antithromb by Day Two: Contraindicated Rehab Services Assessed: Physical medicine initial examination and planning for rehabilitation <Qamar Huitron - Last Filed: 06/08/18 14:05>
[2018-06-09] MEDS: Metoprolol Tartrate 25 MG Tablet PO SCH ×3 (02:48→17:11)
[2018-06-09] MEDS: Chlorhexidine Gluconate 2% 1 Pack (2 Cloths) TOPICAL SCH (05:29)
[2018-06-09] MEDS ORDERED: Lisinopril 20 MG Tablet PO SCH (09:00)
[2018-06-09] MEDS: amLODIPine 10 MG Tablet PO SCH (09:18)
[2018-06-09] MEDS: Famotidine 20 MG Tablet PO SCH ×2 (09:18→22:18)
[2018-06-09] MEDS: Famotidine PF Inj 20 MG/2 ML Vial IV.PUSH SCH ×2 (11:26→22:20)
--- NOTE | 2018-06-09 13:55 | P.PNNS ---
Subjective Interval history: Pt awake and alert. Sitting up in chair eating lunch. No headaches. No nausea or vomiting. No paresthesias in extremities or face. <Qamar Huitron - Last Filed: 06/09/18 13:50> Physical Exam Vital signs: Vital Signs 06/08/18 14:00 06/08/18 14:02 06/08/18 14:06 Temperature Pulse Rate 70 71 76 Respiratory Rate 29 H 19 26 H Blood Pressure 162/79 H Pulse Oximetry 99 99 99 06/08/18 14:15 06/08/18 14:16 06/08/18 14:22 Temperature Pulse Rate 81 Respiratory Rate Blood Pressure 193/89 H 178/81 H 174/80 H Pulse Oximetry 06/08/18 15:00 06/08/18 15:02 06/08/18 16:00 Temperature 99.1 F Pulse Rate 77 81 75 Respiratory Rate 31 H 36 H 18 Blood Pressure 186/98 H 134/105 H Pulse Oximetry 99 99 99 06/08/18 16:02 06/08/18 17:00 06/08/18 17:02 Temperature Pulse Rate 79 65 68 Respiratory Rate 41 H 29 H 22 Blood Pressure 148/72 H 151/70 H Pulse Oximetry 99 99 100 06/08/18 18:00 06/08/18 20:00 06/09/18 00:00 Temperature 98.1 F 97.1 F L Pulse Rate 82 62 62 Respiratory Rate 18 20 Blood Pressure 146/75 H 159/82 H Pulse Oximetry 97 06/09/18 04:00 06/09/18 08:00 06/09/18 12:00 Temperature 98.2 F 97.5 F L 98.5 F Pulse Rate 64 63 67 Respiratory Rate 20 18 18 Blood Pressure 175/85 H 175/81 H 169/70 H Pulse Oximetry 98 98 99 Intake & Output 06/08/18 06/09/18 06/09/18 18:59 06:59 18:59 Intake Total 1300 / 1300 Balance 1300 / 1300 Weight 73.9 kg Intake: IV 100 / 100 KCl 20 mEq Premix Inj 20 meq In 100 / 100 100 ml @ 50 mls/hr IV.SIG Q2H PRN Rx#:[id number] Oral 1200 / 1200 Other: # Voids 3 1 Date of Last Bowel Movement 06/07/18 06/08/18 # Bowel Movements 1 - Constitutional no acute distress, average body habitus - Routine HEENT Exam Head: Absent: normocephalic, atraumatic Eye: Present: PERRL (Pupils 3mm bilaterally reactive bilaterally.). Absent: conjunctival icterus ENT: Present: oropharynx clear - Routine Neck Exam Present: trachea midline - Routine Respiratory Exam Present: CTA bilaterally. Absent: respiratory distress, rhonchi, wheezes - Routine Cardiovascular Exam Present: RRR, S1, S2. Absent: murmur - Routine Abdominal Exam Present: soft, normoactive bowel sounds. Absent: distended, firm - Routine Skin Exam Absent: cyanosis, erythema - Routine Neurological Exam Present: alert, oriented X3, altered mental status, moving all extremities, normal speech. Absent: motor deficit, facial asymmetry - Routine Psychiatric Exam Present: normal affect, cooperative, good insight. Absent: anxious, agitated <Qamar Huitron - Last Filed: 06/09/18 13:50> Vital signs: Vital Signs 06/08/18 15:00 06/08/18 15:02 06/08/18 16:00 Temperature 99.1 F Pulse Rate 77 81 75 Respiratory Rate 31 H 36 H 18 Blood Pressure 186/98 H 134/105 H Pulse Oximetry 99 99 99 06/08/18 16:02 06/08/18 17:00 06/08/18 17:02 Temperature Pulse Rate 79 65 68 Respiratory Rate 41 H 29 H 22 Blood Pressure 148/72 H 151/70 H Pulse Oximetry 99 99 100 06/08/18 18:00 06/08/18 20:00 06/09/18 00:00 Temperature 98.1 F 97.1 F L Pulse Rate 82 62 62 Respiratory Rate 18 20 Blood Pressure 146/75 H 159/82 H Pulse Oximetry 97 06/09/18 04:00 06/09/18 08:00 06/09/18 12:00 Temperature 98.2 F 97.5 F L 98.5 F Pulse Rate 64 63 67 Respiratory Rate 20 18 18 Blood Pressure 175/85 H 175/81 H 169/70 H Pulse Oximetry 98 98 99 Intake & Output 06/08/18 06/09/18 06/09/18 18:59 06:59 18:59 Intake Total 1300 / 1300 Balance 1300 / 1300 Weight 73.9 kg Intake: IV 100 / 100 KCl 20 mEq Premix Inj 20 meq In 100 / 100 100 ml @ 50 mls/hr IV.SIG Q2H PRN Rx#:[id number] Oral 1200 / 1200 Other: # Voids 3 1 Date of Last Bowel Movement 06/07/18 06/08/18 # Bowel Movements 1 <Lauri Pang - Last Filed: 06/09/18 14:43> Assessment and Plan - Assessment (1) Hypertensive emergency Code(s): I16.1 - Hypertensive emergency Status: Acute (2) Brainstem hemorrhage Code(s): I61.3 - Nontraumatic intracerebral hemorrhage in brain stem Status: Acute Qualifiers: Intracerebral hemorrhage etiology: nontraumatic (3) Alcohol abuse Code(s): F10.10 - Alcohol abuse, uncomplicated Status: Chronic - Plan 62-year-old lady with severe hypertension and associated left mid brain/ brainstem hemorrhage without hydrocephalus. The bleed is characteristic of a hypertensive hemorrhage. Reviewed results of CTA with Dr. 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 She also has complete occlusion of the left internal carotid artery and bulky calcified plaque in the right carotid bulb extending into the internal carotid origin with resultant approximately 65% stenosis. The aneurysm is an incidental finding but given her occlusion of the left internal carotid artery Dr. Pang recommends that she be treated at a tertiary care center when she is discharged. See my previous note for his further explanation of findings. P: Continue with hypertension control. Continue to monitor for alcohol withdrawal symptoms. Continue with mechanical DVT prophylaxis as chemical DVT prophylaxis is contraindicated given the brainstem hemorrhage. PT and OT rehabilitation. Follow up with [facility] when discharged. <Qamar Huitron - Last Filed: 06/09/18 13:50> - Assessment (1) Brainstem hemorrhage Code(s): I61.3 - Nontraumatic intracerebral hemorrhage in brain stem Status: Acute Qualifiers: Intracerebral hemorrhage etiology: nontraumatic (2) Hypertensive emergency Code(s): I16.1 - Hypertensive emergency Status: Acute (3) Alcohol abuse Code(s): F10.10 - Alcohol abuse, uncomplicated Status: Chronic - Attending Attestation The exam, history, and the medical decision-making described in the above note were completed with the assistance of the mid-level provider. I reviewed and agree with the findings presented. I attest that I had a [id number] encounter with the patient on the same day, and personally performed and documented my assessment and findings in the medical record. <Lauri Pang - Last Filed: 06/09/18 14:43> Progress Note: Quality - Stroke Contraindication Not Initiating IV-Tpa: Contraindicated Onset of Symptoms Date: 06/05/18 Onset of Symptoms Time: 08:45 (Approximate as per patient) Symptom Onset Unknown: Yes Contraindication Antithromb by Day Two: Contraindicated Rehab Services Assessed: Physical medicine initial examination and planning for rehabilitation <Qamar uHitron - Last Filed: 06/09/18 13:50>
--- NOTE | 2018-06-09 14:25 | P.PNIM ---
Subjective Interval history: Strength and balance improving. Blood pressures not yet demonstrating control. No complaints from the patient. Physical Exam Vital signs: Vital Signs 06/08/18 15:00 06/08/18 15:02 06/08/18 16:00 Temperature 99.1 F Pulse Rate 77 81 75 Respiratory Rate 31 H 36 H 18 Blood Pressure 186/98 H 134/105 H Pulse Oximetry 99 99 99 06/08/18 16:02 06/08/18 17:00 06/08/18 17:02 Temperature Pulse Rate 79 65 68 Respiratory Rate 41 H 29 H 22 Blood Pressure 148/72 H 151/70 H Pulse Oximetry 99 99 100 06/08/18 18:00 06/08/18 20:00 06/09/18 00:00 Temperature 98.1 F 97.1 F L Pulse Rate 82 62 62 Respiratory Rate 18 20 Blood Pressure 146/75 H 159/82 H Pulse Oximetry 97 06/09/18 04:00 06/09/18 08:00 06/09/18 12:00 Temperature 98.2 F 97.5 F L 98.5 F Pulse Rate 64 63 67 Respiratory Rate 20 18 18 Blood Pressure 175/85 H 175/81 H 169/70 H Pulse Oximetry 98 98 99 Intake & Output 06/08/18 06/09/18 06/09/18 18:59 06:59 18:59 Intake Total 1300 / 1300 Balance 1300 / 1300 Weight 73.9 kg Intake: IV 100 / 100 KCl 20 mEq Premix Inj 20 meq In 100 / 100 100 ml @ 50 mls/hr IV.SIG Q2H PRN Rx#:[id number] Oral 1200 / 1200 Other: # Voids 3 1 Date of Last Bowel Movement 06/07/18 06/08/18 # Bowel Movements 1 Narrative: GENERAL: NAD, A&Ox3 HEAD: Normocephalic. NECK: Supple, trachea midline. No lymphadenopathy. EYES: No scleral icterus. No injection or drainage. CARDIOVASCULAR: Regular rate and rhythm without murmurs, gallops, or rubs. RESPIRATORY: Breath sounds equal bilaterally. No accessory muscle use. GASTROINTESTINAL: Abdomen soft, non-tender, nondistended. MUSCULOSKELETAL: No cyanosis, or edema. SKIN: Warm and dry. NEURO: No focal neurological deficits. Results - Labs CBC & Chem 7: 06/08/18 02:44 06/08/18 02:44 Assessment and Plan - Plan 62yo presenting with hypertensive emergency and hypertensive brainstem hemorrhage on the left, ischemic CVA in right parietal lobe Adjust BP treatments till BP controlled (lisinopril started and adjusted today) . Continue PT. Will need to climb 10 stairs at home, so this is an additional goal. Right parietal lobe ischemic CVA Hypertensive emergency Hypertensive brainstem hemorrhage Carotid artery stenosis Neurosurgery following Not a candidate currently for her carotid artery stenosis Transitioning to p.o. blood pressure management Cardene drip discontinued Continue amlodipine Continue Lopressor Lisinopril started Continue as needed clonidine Hyperlipidemia Continue present treatment Follow as an outpatient Nicotine dependence Patient counseled to quit Continue NicoDerm patch DVT prophylaxis SCDs Chemical Prophylaxis contraindicated by brain stem hemorrhage Ambulation Discharge Planning Awaiting more stability in BP and Improved ambulation Progress Note: Quality - Stroke Contraindication Not Initiating IV-Tpa: Contraindicated Onset of Symptoms Date: 06/05/18 Onset of Symptoms Time: 08:45 (Approximate as per patient) Symptom Onset Unknown: Yes Contraindication Antithromb by Day Two: Contraindicated Rehab Services Assessed: Physical medicine initial examination and planning for rehabilitation
[2018-06-09] MEDS ORDERED: Lisinopril 20 MG Tablet PO ONE (15:00)
[2018-06-09] MEDS: Lisinopril 20 MG Tablet PO SCH (17:13)
[2018-06-10] MEDS: Metoprolol Tartrate 25 MG Tablet PO SCH ×2 (01:02→08:03)
[2018-06-10] MEDS: Chlorhexidine Gluconate 2% 1 Pack (2 Cloths) TOPICAL SCH (04:01)
[2018-06-10 06:27] VITALS: RESP 18
[2018-06-10] MEDS: amLODIPine 10 MG Tablet PO SCH (08:02)
[2018-06-10] MEDS: Famotidine 20 MG Tablet PO SCH (08:03)
[2018-06-10] MEDS: Lisinopril 20 MG Tablet PO SCH (08:03)
[2018-06-10] MEDS: Famotidine PF Inj 20 MG/2 ML Vial IV.PUSH SCH (08:03)
[2018-06-10] MEDS ORDERED: Metoprolol Tartrate 25 MG Tablet PO ONE (08:51)
[2018-06-10] MEDS ORDERED: Metoprolol Tartrate 50 MG Tablet PO SCH ×2 (09:00→21:00)
[2018-06-10 09:24] VITALS: O2SAT 99
[2018-06-10 12:42] VITALS: BP 168/79; PULSE 62; TEMP 97.4
--- NOTE | 2018-06-10 13:40 | P.DS ---
Date of admission: 06/05/18 12:53 Primary care physician: No Primary Care Physician Brief History from admission: 62yF who presented to [facility] for sweating, "dry heaving", and "not feeling well". She reported "pins and needles" sensation to her right hand and foot, onset approximately 8:45 AM (30-45 mins prior to arrival to ED). Denies aphasia, slurred speech, drooling or sensation of facial droop, extremity weakness, difficulty ambulating, headache, or confusion. She was found to be profoundly hypertensive (SBP 260s) with hypertensive brainstem hemorrhage, was started on a nicardipine drip, and was subsequently transferred to the main campus for neurocritical care and neurosurgery evaluation. She denies use of anticoagulants or antiplatelets, denies recent trauma, has a history of elevated BP previously but is not on any antihypertensives currently due to insurance issues; she does not remember which medication(s) she took in the past. She currently complains of nausea. Family history significant for multiple family members with HTN, father with nephrectomy (unclear etiology), and "tumor on his bowel". No known family history of CVA. DS: Medications - Discharge Medications Prescriptions: amlodipine [Norvasc] 10 mg PO DAILY #30 tab lisinopril 40 mg PO DAILY #30 tab metoprolol tartrate 50 mg PO BID #60 tab DS: Summary Hospital Course: Mrs. Mercado is a 62-year-old female admitted secondary to hypertensive emergency. Correlated comorbidities included right parietal lobe ischemia/CVA and hypertensive brainstem hemorrhage. She was admitted to the ICU and provided with IV antihypertensives. Blood pressures were controlled there. Patient has been transitioned over to p.o. treatments. Adjustments were needed over the past 2 days to find balance for her p.o. therapy. At this point she is showing stability in her blood pressures. She is also showing improvement with her ambulation and has demonstrated ability to climb stairs safely. Carotid artery stenosis is found most significant at the left and she will have been outpatient carotid endarterectomy in several weeks. Blood thinners are not an option due to her recent brainstem hemorrhage. She is medically stable and cleared for discharge home today on new blood pressure treatments as listed below. - Time Spent with Patient Total time spent providing and/or coordinating discharge services: Less than 30 minutes - Quality: Stroke Contraindication Not Initiating IV-Tpa: Contraindicated Contraindication Antithromb by Day Two: Contraindicated Rehab Services Assessed: Physical medicine initial examination and planning for rehabilitation - Quality: VTE Contraindication No VTE Prophylaxis: Contraindicated (intracranial hemorrhage) Documentation of Mechanical Device: Intermittent pneumatic compression stockings Deep Vein Thrombosis/Pulmonary Embolism Present on Admission: No Exam Vital signs: Vital Signs 06/09/18 16:00 06/09/18 20:00 06/10/18 00:00 Temperature 98 F 97.6 F 97.8 F Pulse Rate 63 62 61 Respiratory Rate 20 18 18 Blood Pressure 171/77 H 137/82 170/77 H Pulse Oximetry 98 96 97 06/10/18 01:37 06/10/18 04:00 06/10/18 06:48 Temperature 98.4 F Pulse Rate 60 65 Respiratory Rate 16 18 Blood Pressure 193/80 H 168/81 H Pulse Oximetry 96 06/10/18 08:00 06/10/18 12:00 Temperature 97.5 F L 97.4 F L Pulse Rate 61 62 Respiratory Rate 18 18 Blood Pressure 175/71 H 168/79 H Pulse Oximetry 99 99 Intake & Output 06/09/18 06/10/18 06/10/18 18:59 06:59 18:59 Intake Total 600 / 600 Output Total 600 / 600 0 / 0 Balance 0 / 0 0 / 0 Weight 59.6 kg Intake: Oral 600 / 600 Output: Urine 600 / 600 0 / 0 Other: # Voids 3 Date of Last Bowel Movement 06/09/18 Results Procedures completed during hospitalization: None - Impressions ITS Impressions Chest X-Ray 06/05/18 10:48 CONCLUSION: Mild cardiomegaly. Head CTA 06/06/18 00:00 CONCLUSION: 1. 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 2. 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 Head MRI 06/06/18 00:00 CONCLUSION: 1. Stable focal area of intraparenchymal hemorrhage in the left midbrain. 2. 6 mm focal area of acute infarction involving the mid to posterior right parietal lobe. 3. Chronic bilateral maxillary sinus disease. Neck CTA 06/06/18 00:00 CONCLUSION: 1. Diffusely diseased proximal arch vessels with tandem moderate stenoses of the left subclavian artery and left common carotid artery. 2. Complete occlusion of the left internal carotid artery. 3. Bulky calcified plaque in the right carotid bulb extending to the internal carotid origin with resultant approximately 65% stenosis. 4. Focal mild to moderate stenosis of the very proximal left vertebral artery. Head CT 06/06/18 05:00 CONCLUSION: 1. Stable appearance of the brain with stable intraparenchymal hemorrhage at the level of the xiang. . Discharge Plan - Discharge Disposition Patient Disposition: Discharge Home - Discharge Condition Condition: Stable - Discharge Order Discharge Orders: Discharge Order (Routine); Ordered 06/10/18 Ordered By: Raúl Batres - Discharge Details Anticipated Discharge Date: 06/10/18 - Physicians Team Primary Care Provider: Primary Care Jayjayi,Lidia Attending Provider: Raúl Batres Other Providers: Lauri Pang MD ; Shayna Baron MD ; Bear Hanks MD ; Krysta Newtno MD ; Ricardo Alas MD
== END 2018-06-10 15:09 | disposition home or self-care (01) ==
LOC: PHED 09:46 → PHEDA 12:53 → N03 15:17 → N05 06-08 21:04
PROVIDERS: ADMIT Hospitalist; ATTEND Hospitalist